=== PATIENT | female | born 1935 | race Caucasian/White ===

== ENCOUNTER 2019-07-04 11:07 | Outpatient (CLI) | payer MEDICARE, OTHER, SELFPAY ==
--- NOTE | 2019-07-04 12:15 | MM_ITS ---
WS: [id number] BILATERAL SCREENING DIGITAL MAMMOGRAM WITH CAD HISTORY: HX OF BREAST CA COMPARISON: 06/20/2018, 06/16/2017 and 01/22/2016 Bilateral CC and MLO views submitted. Computer aided detection analyzed. Breast composition: The breasts are heterogeneously dense, which may obscure small masses. No suspici ous masses, microcalcifications or architectural distortion. Scattered breast asymmetries with benign and vascular calcifications. MM/[id number] IMPRESSION: BI-RADS: 2-Benign FOLLOW UP: 1 Year Follow-up
== END 2019-07-04 11:08 | disposition home or self-care (01) ==
LOC: RADSHAW 11:12 → ONCMED 12:15
PROVIDERS: Family Provider Family Medicine; PCP Family Medicine; Visit Provider Internal Medicine Hematology & Oncology
DX: Z85.3 Personal history of malignant neoplasm of breast (principal)
CPT/HCPCS: 77066

== ENCOUNTER 2019-07-13 12:08 | Outpatient (CLI) | payer MEDICARE, OTHER, SELFPAY ==
[2019-07-13 12:59] LABS: Basophils % 0.2 %; Eosinophils # 0.2 10^3/uL (0.0-0.8); Eosinophils % 2.1 %; Hematocrit 38.3 % (37.0-47.0); Hemoglobin 12.7 g/dL (11.5-15.3); Lymphocytes # 2.5 10^3/uL (0.8-4.8); Lymphocytes % 26.5 %; Mean Corpuscular HGB Conc 33.2 g/dL (30.0-36.0); Mean Corpuscular Hemoglobin 30.2 pg (28.0-34.0); Mean Corpuscular Volume 91.2 fL (81-99); Mean Platelet Volume 12.5 fL (7.4-10.4); Monocytes # 0.8 10^3/uL (0.2-0.9); Monocytes % 8.1 %; Neutrophils # 5.8 10^3/uL (1.8-7.7); Neutrophils % 62.8 %; Nucleated Red Blood Cells % 0 %; Platelet Count 192 10^3/cmm (130-400); Red Cell Distribution Width 12.9 % (12.1-15.1); White Blood Count 9.3 10^3/uL (4.0-10.0)
[2019-07-13 13:16] LABS: Alanine Aminotransferase 13 U/L (0-33); Albumin Level 3.8 g/dL (3.5-5.2); Alkaline Phosphatase 53 IU/L (35-105); Anion Gap 13.9 (5-19); Aspartate Amino Transferase 23 U/L (0-32); Blood Urea Nitrogen 14 mg/dL (8-23); Calcium 9.4 mg/dL (8.5-10.5); Carbon Dioxide 26 mmol/L (22-29); Chloride 99 mmol/L (98-107); Globulin 2.9 g/dL (1.3-4.6); Glucose 115 mg/dL (65-115); Potassium 3.9 mmol/L (3.5-5.1); Sodium 135 mmol/L (136-145); Total Bilirubin 0.2 mg/dL (0.15-1.2); Total Protein 6.7 g/dL (6.6-8.7)
--- NOTE | 2019-07-17 06:18 | ONC FU_ITS ---
Dr. Licona Patient Follow-Up Note Patient: Soledad Varma Unit #: [id number]: 1935 Dicatated By: Diomedes Licona M.D.Date of Visit:Jul 13, 2019 Onc Med Follow-up/Prog Note Chief Complaint: Breast cancer. History of Present Illness: This is an 83 year-old woman with grade 2 infiltrating ductal carcinoma of the right breast, stage IA (T1c, N0, M0), ER/NC positive and HER-2/katie nonamplified. She had presented in January 2016 with an abnormal screening mammogram which showed increased asymmetry in the anterior central right breast, BI-RADS 0. Further evaluation with diagnostic mammogram on 03/25/2016 revealed no definite mass lesion or architectural distortion. Ultrasound at that time, however, showed an oval-shaped hypoechoic mass in the deep 9 to 10:00 position of the right breast at 2 cm from the nipple. It measured 1.4 x 0.8 x 1.1 cm, and it was BI-RADS Category 4A, suspicious. Ultrasound-guided needle biopsy on 04/27/2016 was nondiagnostic. She was referred to Dr. Ludwig. Excisional biopsy on 06/18/2016 showed grade 2/3 infiltrating ductal carcinoma08/05/2016 measuring 1.2 x 1.1 cm. There was tumor present at the posterior inked margin and there is tumor within 1 mm of the anterior inked margin. The breast prognostic profile showed ER positive at 99% and NC positive at 99%. The tumor was negative for overexpression of HER-2/katie, 0+ by IHC, amplification ratio 1.1 by FISH with 1.9 HER-2/katie copies/cell. The Ki-67 was favorable at 4%. She underwent reexcision lumpectomy with axillary sentinel lymph node biopsy on 07/16/2016. Pathology showed no residual carcinoma in the reexcision specimen. There was no involvement in 7 lymph nodes. As such, her disease was stage IA (T1c, N0, M0). I had seen her initially on 08/05/2016. Her primary concern at that time was that she did not want any treatment which would potentially make her sick or weaken her bones. She did not want to have breast radiation. She did agree to take adjuvant hormonal therapy with tamoxifen, but not an aromatase inhibitor. Her other medical illnesses include hypertension, hyperlipidemia, and GERD. She is a nonsmoker. INTERIM HISTORY: On 11/05/2017 she was admitted to the hospital after presenting to the emergency room with abdominal pain and vomiting. Her CT abdomen/pelvis showed mildly dilated fluid-filled loops of small bowel suspicious for early or partial small bowel obstruction. Also noted was an abnormally prominent uterine profile containing heterogeneous low-attenuation material within the endometrial canal. It was noted to be an abnormal finding for a postmenopausal patient. Her GI symptoms improved with conservative management. She was discharged home on 11/14/2017. Her tamoxifen was discontinued. She then underwent an endometrial sampling/biopsy on 11/17/2017. Pathology showed just a scant fragments of superficial endometrial glands and numerous macrophages. There was no malignancy, hyperplasia, or chronic endometritis identified. She had further evaluation with transvaginal ultrasound on 12/06/2017. It showed markedly abnormal endometrium containing cystic areas. There appeared to be progression of the endometrial changes compared to 11/05/2017 ultrasound. On 01/04/2018 she underwent hysteroscopy with findings of a polyp arising from the posterior uterine wall. She underwent polypectomy with MYOSURE. Pathology was benign. I had seen her for a follow-up visit in June 2018. After conferring with Dr. Blount, I did have her restart adjuvant hormonal therapy with tamoxifen 20 mg daily. She is seen for a scheduled visit. She has been feeling good generally. She has had a few hot flashes with the tamoxifen. She otherwise appears to be tolerating it well. She has good energy and she has normal activity. Her appetite is good. She has no fever or night sweats she has mild exertional dyspnea. She does not complain of chest pain. She has no GI/ complaints other than frequent urination. She has occasional back pain, which has been going on for years. She has no other joint or bone pain. She occasionally has numbness in the thumb and index finger of her right hand. She has no other focal neurologic symptoms. Medications: Aspirin 1 Tablet (of 81 mg) Oral daily, Bisoprolol Fumarate 0.5 Tablet (of 5 mg) Oral daily, Calcium 600 + D 1 (600-200 mg - Units) Tablet Oral daily, Cetirizine HCl 1 Tablet (of 10 mg) Oral daily, Cyclobenzaprine HCl 1 (10 mg) Tablet Oral daily PRN, Dicyclomine HCl 1 Capsule (of 10 mg) Oral t.i.d. PRN, Fish Oil 1 (1200 mg) Capsule Oral b.i.d., Flonase 2 spray(s) (of 50 mcg/act) Suspension Nasal daily, Garlic 1 (1000 mg) Capsule Oral daily, Multivitamin Adult 1 Tablet Oral daily, Niacin 1 (100 mg) Tablet Oral daily, Pepcid 1 Tablet (of 20 mg) Oral daily, Probiotic 1 Capsule Oral daily, Tamoxifen Citrate 1 Tablet (of 20 mg) Oral daily Allergies: No Known Allergies. Review of Systems: Constitutional - She has good energy and she has normal activity. Appetite is good and weight is stable. No fever or night sweats. She has a few hot flashes. ECOG score is 0, ENMT - She has some sinus drainage which is chronic. No mouth sores. No sore throat or difficulty swallowing, Hematologic/Lymphatic - No abnormal bruising or bleeding, Respiratory - She has mild exertional dyspnea. No cough. No pleuritic pain or hemoptysis, Cardiovascular - No angina pain. No palpitations, Gastrointestinal - No nausea or vomiting. No heartburn or acid reflux. No diarrhea or constipation. No blood in the stool or black stools, Genitourinary (F) - No dysuria or hematuria. She has urinary frequency. No urgency or incontinence, Musculoskeletal - She occasionally has back pain. She has no other joint or bone pain, Integumentary - No skin complications, Neurologic - No headache or dizziness. She has occasional numbness in the thumb and index finger of her right hand. She has no other focal neurologic symptoms, Psychiatric - No anxiety or depression. No insomnia. Vital Signs: Performed on Jul 13, 2019 13:26 Height - 61.00 in Weight - 137.4 lbs (HIGH) BSA - 1.61 sq.m BMI - 25.96 Temperature - 97.2 F (LOW) Pulse - 103 /min (HIGH) Respiration - 24 /min BP - 161/89 mm(hg) (HIGH) O2 Sat - 98 % Pain - 0 Physical Examination: Constitutional - She looks good generally, Eyes - Sclerae nonicteric. Conjunctivae clear, ENMT - No lesions noted in the oral cavity, Hematologic/Lymphatic - No cervical, clavicular, or axillary adenopathy, Respiratory - Lungs are clear with good air movement bilaterally, Cardiovascular - Heart rhythm is regular. There is a III/ systolic murmur. There is no gallop or rub noted, Abdomen - Soft. Liver and spleen are not enlarged. There is no abdominal mass or ascites noted and there is no inguinal adenopathy, Extremities - No edema, though the left calf appears slightly larger than the right, Neurologic - No focal neurologic deficits noted. Lab/Imaging: Test performed on Jul 13, 2019 12:20 Sodium 135 mmol/L Potassium 3.9 mmol/L Chloride 99 mmol/L CO2 26 mmol/L Anion Gap 13.9 BUN 14 mg/dL Creatinine 0.6 mg/dL Cr Clearance (Est) 68.67 mL/min Glucose 115 mg/dL Calcium 9.4 mg/dL Protein, Total 6.7 g/dL Albumin 3.8 g/dL Globulin 2.9 g/dL Bilirubin, Total 0.2 mg/dL ALT (SGPT) 13 U/L AST (SGOT) 23 U/L Alkaline Phosphatase 53 IU/L WBC 9.3 10 3/uL RBC 4.20 10 6/uL HGB 12.7 g/dL HCT 38.3 % MCV 91.2 fL MCH 30.2 pg MCHC 33.2 g/dL RDW 12.9 % Platelet Count 192 10 3/cmm MPV 12.5 fL Neutrophils 5.8 10 3/uL Lymphocytes 2.5 10 3/uL Monocytes 0.8 10 3/uL Eosinophils 0.2 10 3/uL Basophils 0.0 10 3/uL Neutrophil % 62.8 % Lymphocyte % 26.5 % Monocyte % 8.1 % Eosinophil % 2.1 % Basophils % 0.2 % Impression: 1. Patient with grade 2 infiltrating ductal carcinoma of the right breast, stage IA (T1c, N0, M0), ER/NC positive and HER-2/katie nonamplified. 2. She underwent excisional biopsy of the right breast on 06/18/2016 followed by reexcision lumpectomy and axillary sentinel lymph node biopsy on 07/16/2016. Her other medical illnesses include: 3. Hypertension. 4. Hyperlipidemia. 5. GERD. She did not want to have breast radiation. She was willing to take adjuvant hormonal therapy with tamoxifen, but not an aromatase inhibitor. She began treatment with tamoxifen 20 mg daily in August 2016. On 11/05/2017 she was admitted to the hospital with partial small bowel obstruction. It resolved with conservative management. However, her ultrasound and CT scans showed findings in the endometrium which were suspicious for endometrial cancer. Her tamoxifen was discontinued. The initial endometrial biopsy was nondiagnostic. A follow-up transvaginal ultrasound still showed significantly abnormal endometrium. She ultimately underwent hysteroscopy on 01/04/2018 which showed evidence of endometrial polyp in the posterior uterine wall. She underwent polypectomy and the pathology was benign. As of her follow-up visit in June 2018 she had restarted adjuvant hormonal therapy with tamoxifen 20 mg daily. She has tolerated it well and thus far there has been no evidence of recurrence of the breast cancer. Plan: She will continue adjuvant hormonal therapy with tamoxifen 20 mg daily. I will see her again in 6 months. Signed By: Diomedes Licona M.D. <<Signature on File>>
== END 2019-07-13 12:09 | disposition home or self-care (01) ==
LOC: ONCMED 12:08
PROVIDERS: Family Provider Family Medicine; PCP Family Medicine; Visit Provider Internal Medicine Medical Oncology
DX: C50.511 Malignant neoplasm of lower-outer quadrant of right female breast (principal); I10 Essential (primary) hypertension; E78.5 Hyperlipidemia, unspecified; K21.9 Gastro-esophageal reflux disease without esophagitis; Z17.0 Estrogen receptor positive status [ER+]; Z79.810 Long term (current) use of selective estrogen receptor modulators (SERMs); Z79.82 Long term (current) use of aspirin
CPT/HCPCS: 36415; 80053; 85025; 99214

== ENCOUNTER 2019-07-14 09:18 | Outpatient (REF) | payer MEDICARE, OTHER, SELFPAY ==
[2019-07-14 13:24] LABS: Chol HDL Ratio 2.65 mg/dL (0.0-4.40); Cholesterol 196 mg/dL (0-200); Glucose 97 mg/dL (65-115); HDL Cholesterol 74 mg/dL (60-100); LDL Cholesterol Calculated 93 mg/dL (50-129); LDL HDL Ratio 1.26 RATIO (0.00-3.22); Triglycerides 144 mg/dL (0-150)
[2019-07-14 14:19] LABS: Estmated Average Glucose 134; Hemoglobin A1C 6.3 % (4.0-6.0)
== END 2019-07-14 09:19 | disposition home or self-care (01) ==
LOC: LAB 09:18
PROVIDERS: Family Provider Family Medicine; PCP Family Medicine; Visit Provider Dermatology
DX: Z01.89 Encounter for other specified special examinations (principal)
CPT/HCPCS: 80061; 82947; 83036

== ENCOUNTER 2020-01-11 11:53 | Outpatient (CLI) | payer MEDICARE, OTHER, SELFPAY ==
[2020-01-11 12:27] LABS: Basophils % 0.3 %; Eosinophils # 0.3 10^3/uL (0.0-0.8); Eosinophils % 2.9 %; Hematocrit 37.5 % (37.0-47.0); Hemoglobin 12.4 g/dL (11.5-15.3); Lymphocytes # 2.4 10^3/uL (0.8-4.8); Lymphocytes % 25.8 %; Mean Corpuscular HGB Conc 33.1 g/dL (30.0-36.0); Mean Corpuscular Hemoglobin 30.8 pg (28.0-34.0); Mean Corpuscular Volume 93.1 fL (81-99); Mean Platelet Volume 12.3 fL (7.4-10.4); Monocytes # 0.7 10^3/uL (0.2-0.9); Monocytes % 7.8 %; Neutrophils # 5.93 10^3/uL (1.8-7.7); Neutrophils % 62.9 %; Nucleated Red Blood Cells % 0 %; Platelet Count 166 10^3/cmm (130-400); Red Blood Count 4.03 10^6/uL (4.1-5.3); Red Cell Distribution Width 13.1 % (12.1-15.1); White Blood Count 9.4 10^3/uL (4.0-10.0)
[2020-01-11 13:18] LABS: Alanine Aminotransferase 14 U/L (0-33); Albumin Level 4.1 g/dL (3.5-5.2); Alkaline Phosphatase 48 IU/L (35-105); Anion Gap 13.9 (5-19); Aspartate Amino Transferase 22 U/L (0-32); Blood Urea Nitrogen 12 mg/dL (8-23); Carbon Dioxide 25 mmol/L (22-29); Chloride 100 mmol/L (98-107); Glucose 118 mg/dL (65-115); Osmolality Calculated 277 mOsm/kg (285-295); Potassium 3.9 mmol/L (3.5-5.1); Sodium 135 mmol/L (136-145); Total Bilirubin 0.2 mg/dL (0.15-1.2); Total Protein 7.1 g/dL (6.6-8.7)
--- NOTE | 2020-01-11 18:37 | ONC FU_ITS ---
Dr. Licona Patient Follow-Up Note Patient: Soledad Varma Unit #: [id number]: 1935 Dicatated By: Diomedes Licona M.D.Date of Visit:Jan 11, 2020 Onc Med Follow-up/Prog Note Chief Complaint: Breast cancer. History of Present Illness: This is an 84 year-old woman with grade 2 infiltrating ductal carcinoma of the right breast, stage IA (T1c, N0, M0), ER/CA positive and HER-2/katie nonamplified. She had presented in January 2016 with an abnormal screening mammogram which showed increased asymmetry in the anterior central right breast, BI-RADS 0. Further evaluation with diagnostic mammogram on 03/25/2016 revealed no definite mass lesion or architectural distortion. Ultrasound at that time, however, showed an oval-shaped hypoechoic mass in the deep 9 to 10:00 position of the right breast at 2 cm from the nipple. It measured 1.4 x 0.8 x 1.1 cm, and it was BI-RADS Category 4A, suspicious. Ultrasound-guided needle biopsy on 04/27/2016 was nondiagnostic. She was referred to Dr. Ludwig. Excisional biopsy on 06/18/2016 showed grade 2/3 infiltrating ductal carcinoma08/05/2016 measuring 1.2 x 1.1 cm. There was tumor present at the posterior inked margin and there is tumor within 1 mm of the anterior inked margin. The breast prognostic profile showed ER positive at 99% and CA positive at 99%. The tumor was negative for overexpression of HER-2/katie, 0+ by IHC, amplification ratio 1.1 by FISH with 1.9 HER-2/katie copies/cell. The Ki-67 was favorable at 4%. She underwent reexcision lumpectomy with axillary sentinel lymph node biopsy on 07/16/2016. Pathology showed no residual carcinoma in the reexcision specimen. There was no involvement in 7 lymph nodes. As such, her disease was stage IA (T1c, N0, M0). I had seen her initially on 08/05/2016. Her primary concern at that time was that she did not want any treatment which would potentially make her sick or weaken her bones. She did not want to have breast radiation. She did agree to take adjuvant hormonal therapy with tamoxifen, but not an aromatase inhibitor. Her other medical illnesses include hypertension, hyperlipidemia, and GERD. She is a nonsmoker. INTERIM HISTORY: On 11/05/2017 she was admitted to the hospital after presenting to the emergency room with abdominal pain and vomiting. Her CT abdomen/pelvis showed mildly dilated fluid-filled loops of small bowel suspicious for early or partial small bowel obstruction. Also noted was an abnormally prominent uterine profile containing heterogeneous low-attenuation material within the endometrial canal. It was noted to be an abnormal finding for a postmenopausal patient. Her GI symptoms improved with conservative management. She was discharged home on 11/14/2017. Her tamoxifen was discontinued. She then underwent an endometrial sampling/biopsy on 11/17/2017. Pathology showed just a scant fragments of superficial endometrial glands and numerous macrophages. There was no malignancy, hyperplasia, or chronic endometritis identified. She had further evaluation with transvaginal ultrasound on 12/06/2017. It showed markedly abnormal endometrium containing cystic areas. There appeared to be progression of the endometrial changes compared to 11/05/2017 ultrasound. On 01/04/2018 she underwent hysteroscopy with findings of a polyp arising from the posterior uterine wall. She underwent polypectomy with MYOSURE. Pathology was benign. I had seen her for a follow-up visit in June 2018. After conferring with Dr. Blount, I did have her restart adjuvant hormonal therapy with tamoxifen 20 mg daily. She is seen for a scheduled visit. She has been feeling good generally. She has pretty good energy, and she has normal activity. ECOG score is 0. Her appetite is good. She has not had fever or night sweats. She does have some hot flashes. She continues to have some yellowish vaginal discharge. She has no other apparent side effects with the tamoxifen. She did not keep her scheduled follow-up visit with Dr. Blount, apparently because there were concerns that the visit would not be covered by Medicare. She does not complain of shortness of breath or chest pain, and she has had no recurrence of her cough. She has no GI or complaints. She has occasional joint pain, mainly in her right knee. She has occasional numbness in her right thumb and index finger. She has no other focal neurologic symptoms. Medications: Aspirin 1 Tablet (of 81 mg) Oral daily, Bisoprolol Fumarate 0.5 Tablet (of 5 mg) Oral daily, Calcium 600 + D 1 (600-200 mg - Units) Tablet Oral daily, Cetirizine HCl 1 Tablet (of 10 mg) Oral daily, Cyclobenzaprine HCl 1 (10 mg) Tablet Oral daily PRN, Fish Oil 1 (1200 mg) Capsule Oral daily, Flonase 2 spray(s) (of 50 mcg/act) Suspension Nasal daily, Garlic 1 (1000 mg) Capsule Oral daily, Multivitamin Adult 1 Tablet Oral daily, Niacin 1 (100 mg) Tablet Oral daily, Pepcid 1 Tablet (of 20 mg) Oral daily PRN, Probiotic 1 Capsule Oral daily, Tamoxifen Citrate 1 Tablet (of 20 mg) Oral daily Allergies: No Known Allergies. Review of Systems: Constitutional - She has been feeling good. Her energy is good and she has normal activity without restrictions. Her appetite is good and weight is stable. No fevers or sweating. She has occasional hot flashes. ECOG score is 0, ENMT - She as seasonal allergies. No mouth sores. No sore throat or difficulty swallowing, Hematologic/Lymphatic - No abnormal bruising or bleeding, Respiratory - She has occasional shortness of breath with activity. No cough. No pleuritic pain or hemoptysis, Cardiovascular - No angina pain. No palpitations, Gastrointestinal - No nausea or vomiting. She has occasional heartburn that is adequately managed with Pepcid. No diarrhea or constipation. No blood in the stool or black stools, Genitourinary (F) - No dysuria or hematuria. No urinary frequency. No urgency or incontinence, Musculoskeletal - She has occasional joint pain, mainly in her right knee, Integumentary - No skin complications, Neurologic - No headache or dizziness. She has occasional numbness in the thumb and index finger of her right hand. No other focal neurologic symptoms, Psychiatric - No anxiety or depression. No insomnia. Vital Signs: Performed on Jan 11, 2020 13:30 Height - 61.00 in Weight - 136.6 lbs (LOW) BSA - 1.61 sq.m BMI - 25.81 Temperature - 97.9 F (LOW) Pulse - 86 /min Respiration - 18 /min BP - 190/63 mm(hg) (HIGH) O2 Sat - 98 % Pain - 0 Physical Examination: Constitutional - She looks good generally, Eyes - Sclerae nonicteric. Conjunctivae clear, ENMT - No lesions noted in the oral cavity, Hematologic/Lymphatic - No cervical or clavicular adenopathy, Respiratory - Lungs are clear with good air movement bilaterally, Cardiovascular - Heart rhythm is regular. There is a III/ systolic murmur. There is no gallop or rub noted, Breasts - There is mild induration in the right breast. There is no mass palpable. The left breast shows no mass. There is no axillary adenopathy, Abdomen - Soft. Liver and spleen are not enlarged. There is no abdominal mass or ascites noted and there is no inguinal adenopathy, Extremities - No edema, Neurologic - No focal neurologic deficits noted. Lab/Imaging: Test performed on Jan 11, 2020 12:06 Sodium 135 mmol/L Potassium 3.9 mmol/L Chloride 100 mmol/L CO2 25 mmol/L Anion Gap 13.9 BUN 12 mg/dL Creatinine 0.7 mg/dL Cr Clearance (Est) 57.47 mL/min Glucose 118 mg/dL Calcium 9.0 mg/dL Protein, Total 7.1 g/dL Albumin 4.1 g/dL Globulin 3.0 g/dL Bilirubin, Total 0.2 mg/dL ALT (SGPT) 14 U/L AST (SGOT) 22 U/L Alkaline Phosphatase 48 IU/L WBC 9.4 10 3/uL RBC 4.03 10 6/uL HGB 12.4 g/dL HCT 37.5 % MCV 93.1 fL MCH 30.8 pg MCHC 33.1 g/dL RDW 13.1 % Platelet Count 166 10 3/cmm MPV 12.3 fL Neutrophils 5.93 10 3/uL Lymphocytes 2.4 10 3/uL Monocytes 0.7 10 3/uL Eosinophils 0.3 10 3/uL Basophils 0.0 10 3/uL Neutrophil % 62.9 % Lymphocyte % 25.8 % Monocyte % 7.8 % Eosinophil % 2.9 % Basophils % 0.3 % NRBC % 0 % Impression: 1. Patient with grade 2 infiltrating ductal carcinoma of the right breast, stage IA (T1c, N0, M0), ER/CA positive and HER-2/katie nonamplified. 2. She underwent excisional biopsy of the right breast on 06/18/2016 followed by reexcision lumpectomy and axillary sentinel lymph node biopsy on 07/16/2016. Her other medical illnesses include: 3. Hypertension. 4. Hyperlipidemia. 5. GERD. She did not want to have breast radiation. She was willing to take adjuvant hormonal therapy with tamoxifen, but not an aromatase inhibitor. She began treatment with tamoxifen 20 mg daily in August 2016. On 11/05/2017 she was admitted to the hospital with partial small bowel obstruction. It resolved with conservative management. However, her ultrasound and CT scans showed findings in the endometrium which were suspicious for endometrial cancer. Her tamoxifen was discontinued. The initial endometrial biopsy was nondiagnostic. A follow-up transvaginal ultrasound still showed significantly abnormal endometrium. She ultimately underwent hysteroscopy on 01/04/2018 which showed evidence of endometrial polyp in the posterior uterine wall. She underwent polypectomy and the pathology was benign. As of her follow-up visit in June 2018 she had restarted adjuvant hormonal therapy with tamoxifen 20 mg daily. She has had some yellowish vaginal discharge with the tamoxifen, and she also continues have some hot flashes. Thus far the side effects have been very tolerable. Overall, she appears to be doing well clinically with no evidence of recurrence of the breast cancer. Plan: She will continue adjuvant hormonal therapy with tamoxifen 20 mg daily. I will see her again in 6 months. In the meantime, I will see if I can get her visit rescheduled with Dr. Blount, as I feel that she should continue regular [facility] follow-up. Signed By: Diomedes Licona M.D. <<Signature on File>>
== END 2020-01-11 11:54 | disposition home or self-care (01) ==
LOC: ONCMED 11:56
PROVIDERS: PCP Family Medicine; Visit Provider Internal Medicine Medical Oncology
DX: C50.511 Malignant neoplasm of lower-outer quadrant of right female breast (principal); Z17.0 Estrogen receptor positive status [ER+]; I10 Essential (primary) hypertension; E78.5 Hyperlipidemia, unspecified; K21.9 Gastro-esophageal reflux disease without esophagitis; Z79.810 Long term (current) use of selective estrogen receptor modulators (SERMs)
CPT/HCPCS: 36415; 80053; 85025; 99214

== ENCOUNTER → 2020-03-13 15:35 | Outpatient (BNVA) | payer MEDICARE, OTHER, SELFPAY | PROVIDERS: PCP Family Medicine; Visit Provider Obstetrics & Gynecology | DX: N89.8 Other specified noninflammatory disorders of vagina (principal) | CPT/HCPCS: 87210 ==

== ENCOUNTER 2020-07-11 08:39 | Outpatient (CLI) | payer MEDICARE, OTHER, SELFPAY ==
--- NOTE | 2020-07-11 09:05 | MM_ITS ---
WS: [id number] BILATERAL DIGITAL DIAGNOSTIC MAMMOGRAM MAMMOGRAPHY WITH CAD CLINICAL INFORMATION: HX OF BREAST CA HISTORY: COMPARISON: July 04, 2019 TECHNIQUE: Bilateral CC, MLO, and ML views. FINDINGS: The breasts are composed of heterogeneous fibroglandular density, which can limit the detection of sm all underlying mass lesions. Vascular calcification. Punctate calcifications. Stable parenchymal fibr osis right breast. No suspicious focal mass, asymmetry, calcifications, or architectural distortion. No evidence of dasia gnancy. MM/[id number] IMPRESSION: BI-RADS: 2-Benign FOLLOW UP: 1 Year Follow-up Recommend return to annual diagnostic mammography.
[2020-07-11 09:36] LABS: Alanine Aminotransferase 14 U/L (0-33); Alkaline Phosphatase 52 IU/L (35-105); Anion Gap 11.8 (5-19); Aspartate Amino Transferase 22 U/L (0-32); Blood Urea Nitrogen 15 mg/dL (8-23); Calcium 9.1 mg/dL (8.5-10.5); Carbon Dioxide 28 mmol/L (22-29); Chloride 102 mmol/L (98-107); Globulin 3.1 g/dL (1.3-4.6); Glucose 99 mg/dL (65-115); Osmolality Calculated 287 mOsm/kg (285-295); Potassium 3.8 mmol/L (3.5-5.1); Sodium 138 mmol/L (136-145); Total Bilirubin 0.3 mg/dL (0.15-1.2); Total Protein 7.1 g/dL (6.6-8.7)
[2020-07-11 10:45] LABS: Basophils % 0.3 %; Eosinophils # 0.2 10^3/uL (0.0-0.8); Eosinophils % 2.2 %; Hematocrit 40.4 % (37.0-47.0); Hemoglobin 13.1 g/dL (11.5-15.3); Lymphocytes # 2.7 10^3/uL (0.8-4.8); Lymphocytes % 27.9 %; Mean Corpuscular HGB Conc 32.4 g/dL (30.0-36.0); Mean Corpuscular Hemoglobin 29.8 pg (28.0-34.0); Mean Platelet Volume 11.9 fL (7.4-10.4); Monocytes # 0.7 10^3/uL (0.2-0.9); Neutrophils # 6.02 10^3/uL (1.8-7.7); Neutrophils % 62.3 %; Nucleated Red Blood Cells % 0 %; Platelet Count 183 10^3/cmm (130-400); Red Blood Count 4.39 10^6/uL (4.1-5.3); Red Cell Distribution Width 12.5 % (12.1-15.1); White Blood Count 9.7 10^3/uL (4.0-10.0)
--- NOTE | 2020-07-11 20:02 | ONC FU_ITS ---
Dr. Licona Patient Follow-Up Note Patient: Soledad Varma Unit #: [id number]: 1935 Dicatated By: Diomedes Licona M.D.Date of Visit:Jul 11, 2020 Onc Med Follow-up/Prog Note Chief Complaint: Breast cancer. History of Present Illness: This is an 84 year-old woman with grade 2 infiltrating ductal carcinoma of the right breast, stage IA (T1c, N0, M0), ER/MO positive and HER-2/katie nonamplified. She had presented in January 2016 with an abnormal screening mammogram which showed increased asymmetry in the anterior central right breast, BI-RADS 0. Further evaluation with diagnostic mammogram on 03/25/2016 revealed no definite mass lesion or architectural distortion. Ultrasound at that time, however, showed an oval-shaped hypoechoic mass in the deep 9 to 10:00 position of the right breast at 2 cm from the nipple. It measured 1.4 x 0.8 x 1.1 cm, and it was BI-RADS Category 4A, suspicious. Ultrasound-guided needle biopsy on 04/27/2016 was nondiagnostic. She was referred to Dr. Ludwig. Excisional biopsy on 06/18/2016 showed grade 2/3 infiltrating ductal carcinoma08/05/2016 measuring 1.2 x 1.1 cm. There was tumor present at the posterior inked margin and there is tumor within 1 mm of the anterior inked margin. The breast prognostic profile showed ER positive at 99% and MO positive at 99%. The tumor was negative for overexpression of HER-2/katie, 0+ by IHC, amplification ratio 1.1 by FISH with 1.9 HER-2/katie copies/cell. The Ki-67 was favorable at 4%. She underwent reexcision lumpectomy with axillary sentinel lymph node biopsy on 07/16/2016. Pathology showed no residual carcinoma in the reexcision specimen. There was no involvement in 7 lymph nodes. As such, her disease was stage IA (T1c, N0, M0). I had seen her initially on 08/05/2016. Her primary concern at that time was that she did not want any treatment which would potentially make her sick or weaken her bones. She did not want to have breast radiation. She did agree to take adjuvant hormonal therapy with tamoxifen, but not an aromatase inhibitor. Her other medical illnesses include hypertension, hyperlipidemia, and GERD. She is a nonsmoker. INTERIM HISTORY: On 11/05/2017 she was admitted to the hospital after presenting to the emergency room with abdominal pain and vomiting. Her CT abdomen/pelvis showed mildly dilated fluid-filled loops of small bowel suspicious for early or partial small bowel obstruction. Also noted was an abnormally prominent uterine profile containing heterogeneous low-attenuation material within the endometrial canal. It was noted to be an abnormal finding for a postmenopausal patient. Her GI symptoms improved with conservative management. She was discharged home on 11/14/2017. Her tamoxifen was discontinued. She then underwent an endometrial sampling/biopsy on 11/17/2017. Pathology showed just a scant fragments of superficial endometrial glands and numerous macrophages. There was no malignancy, hyperplasia, or chronic endometritis identified. She had further evaluation with transvaginal ultrasound on 12/06/2017. It showed markedly abnormal endometrium containing cystic areas. There appeared to be progression of the endometrial changes compared to 11/05/2017 ultrasound. On 01/04/2018 she underwent hysteroscopy with findings of a polyp arising from the posterior uterine wall. She underwent polypectomy with MYOSURE. Pathology was benign. I had seen her for a follow-up visit in June 2018. After conferring with Dr. Blount, I did have her restart adjuvant hormonal therapy with tamoxifen 20 mg daily. She is seen for a scheduled visit. She has been feeling good generally. Her energy is somewhat variable, but mostly good. She has normal activity. ECOG score is 0. Her appetite is good. She has not had fever. She has just occasional hot flashes. She has no shortness of breath, cough, or chest pain. She has no GI complaints. Bladder function has been okay. She still has some yellow vaginal discharge. She has continued regular follow-up with Dr. Blount. She has pain at times in her right knee and or right hip, but that has been going on for years. She has no other joint or bone pain. She does not complain of headache or dizziness. She occasionally has numbness in her fingers. She has no other focal neurologic symptoms. Medications: Aspirin 1 Tablet (of 81 mg) Oral daily, Bisoprolol Fumarate 0.5 Tablet (of 5 mg) Oral daily, Calcium 600 + D 1 (600-200 mg - Units) Tablet Oral daily, Cetirizine HCl 1 Tablet (of 10 mg) Oral daily, Cyclobenzaprine HCl 1 (10 mg) Tablet Oral daily PRN, Fish Oil 1 (1200 mg) Capsule Oral daily, Flonase 2 spray(s) (of 50 mcg/act) Suspension Nasal daily, Garlic 1 (1000 mg) Capsule Oral daily, Multivitamin Adult 1 Tablet Oral daily, Niacin 1 (100 mg) Tablet Oral daily, Pepcid 1 Tablet (of 20 mg) Oral daily PRN, Probiotic 1 Capsule Oral daily, Tamoxifen Citrate 1 Tablet (of 20 mg) Oral daily, Vitamin D Capsule Oral Take as Directed Allergies: No Known Allergies. Vital Signs: Performed on Jul 11, 2020 10:38 Height - 61.00 in Weight - 137 lbs (HIGH) BSA - 1.61 sq.m BMI - 25.89 Temperature - 98.3 F (LOW) Pulse - 81 /min Respiration - 17 /min BP - 157/83 mm(hg) (HIGH) O2 Sat - 94 % (LOW) Pain - 0 Physical Examination: Constitutional - She looks good generally, Eyes - Sclerae nonicteric. Conjunctivae clear, ENMT - No lesions noted in the oral cavity, Hematologic/Lymphatic - No cervical or clavicular adenopathy, Respiratory - Lungs are clear with good air movement bilaterally, Cardiovascular - Heart rhythm is regular. There is a III/ systolic murmur. There is no gallop or rub noted, Breasts - There are no breast masses noted. There is no axillary adenopathy, Abdomen - Soft. Liver and spleen are not enlarged. There is no abdominal mass or ascites noted and there is no inguinal adenopathy, Extremities - No edema, Neurologic - No focal neurologic deficits noted. Lab/Imaging: CBC shows hemoglobin 13.1 g, white blood cell count 9700, and platelet count 183,000. Comprehensive metabolic profile is unremarkable. Problem List: 1. Grade 2 infiltrating ductal carcinoma of the right breast, stage IA (T1c, N0, M0), ER/MO positive and HER-2/katie nonamplified. She underwent excisional biopsy of the right breast on 06/18/2016 followed by reexcision lumpectomy and axillary sentinel lymph node biopsy on 07/16/2016. She did not want to have breast radiation. She was willing to take adjuvant hormonal therapy with tamoxifen, but not an aromatase inhibitor. She began treatment with tamoxifen 20 mg daily in August 2016. 2. Hypertension. 3. Hyperlipidemia. 4. GERD. Problems Addressed with this Encounter and Plan: Grade 2 infiltrating ductal carcinoma of the right breast, stage IA (T1c, N0, M0), ER/MO positive and HER-2/katie nonamplified. She underwent excisional biopsy of the right breast on 06/18/2016 followed by reexcision lumpectomy and axillary sentinel lymph node biopsy on 07/16/2016. She did not want to have breast radiation. She was willing to take adjuvant hormonal therapy with tamoxifen, but not an aromatase inhibitor. She began treatment with tamoxifen 20 mg daily in August 2016. In November [address] scans showed findings in the endometrium which were suspicious for endometrial cancer. Her tamoxifen was discontinued. The initial endometrial biopsy was nondiagnostic. A follow-up transvaginal ultrasound still showed significantly abnormal endometrium. She ultimately underwent hysteroscopy on 01/04/2018 which showed evidence of endometrial polyp in the posterior uterine wall. She underwent polypectomy and the pathology was benign. She had restarted tamoxifen in June 2018. She has since then continued to have some mild vaginal discharge. She otherwise just has mild hot flashes with it. 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 Overall, she has been doing well clinically with no evidence of recurrence of the breast cancer. As such, she will continue her adjuvant hormonal therapy with tamoxifen 20 mg daily. She will be scheduled for a follow-up visit in 6 months. Signed By: Diomedes Licona M.D. <<Signature on File>>
== END 2020-07-11 08:40 | disposition home or self-care (01) ==
PROVIDERS: PCP Family Medicine; Visit Provider Internal Medicine Medical Oncology
DX: C50.811 Malignant neoplasm of overlapping sites of right female breast (principal); Z17.0 Estrogen receptor positive status [ER+]; I10 Essential (primary) hypertension; E78.5 Hyperlipidemia, unspecified; K21.9 Gastro-esophageal reflux disease without esophagitis; Z79.811 Long term (current) use of aromatase inhibitors
CPT/HCPCS: 36415; 77066; 80053; 85025; 99214

== ENCOUNTER 2021-01-14 13:55 | Outpatient (CLI) | payer MEDICARE, OTHER, SELFPAY ==
--- NOTE | 2021-01-14 18:44 | ONC FU_ITS ---
Dr. Licona Patient Follow-Up Note Patient: Soledad Varma Unit #: [id number]: 1935 Dicatated By: Diomedes Licona M.D.Date of Visit:Jan 14, 2021 Onc Med Follow-up/Prog Note Chief Complaint: Breast cancer. History of Present Illness: This is an 85 year-old woman with grade 2 infiltrating ductal carcinoma of the right breast, stage IA (T1c, N0, M0), ER/[place] positive and HER-2/katie nonamplified. She had presented in January 2016 with an abnormal screening mammogram which showed increased asymmetry in the anterior central right breast, BI-RADS 0. Further evaluation with diagnostic mammogram on 03/25/2016 revealed no definite mass lesion or architectural distortion. Ultrasound at that time, however, showed an oval-shaped hypoechoic mass in the deep 9 to 10:00 position of the right breast at 2 cm from the nipple. It measured 1.4 x 0.8 x 1.1 cm, and it was BI-RADS Category 4A, suspicious. Ultrasound-guided needle biopsy on 04/27/2016 was nondiagnostic. She was referred to Dr. Ludwig. Excisional biopsy on 06/18/2016 showed grade 2/3 infiltrating ductal carcinoma08/05/2016 measuring 1.2 x 1.1 cm. There was tumor present at the posterior inked margin and there is tumor within 1 mm of the anterior inked margin. The breast prognostic profile showed ER positive at 99% and [place] positive at 99%. The tumor was negative for overexpression of HER-2/katie, 0+ by IHC, amplification ratio 1.1 by FISH with 1.9 HER-2/katie copies/cell. The Ki-67 was favorable at 4%. She underwent reexcision lumpectomy with axillary sentinel lymph node biopsy on 07/16/2016. Pathology showed no residual carcinoma in the reexcision specimen. There was no involvement in 7 lymph nodes. As such, her disease was stage IA (T1c, N0, M0). I had seen her initially on 08/05/2016. Her primary concern at that time was that she did not want any treatment which would potentially make her sick or weaken her bones. She did not want to have breast radiation. She did agree to take adjuvant hormonal therapy with tamoxifen, but not an aromatase inhibitor. Her other medical illnesses include hypertension, hyperlipidemia, and GERD. She is a nonsmoker. INTERIM HISTORY: On 11/05/2017 she was admitted to the hospital after presenting to the emergency room with abdominal pain and vomiting. Her CT abdomen/pelvis showed mildly dilated fluid-filled loops of small bowel suspicious for early or partial small bowel obstruction. Also noted was an abnormally prominent uterine profile containing heterogeneous low-attenuation material within the endometrial canal. It was noted to be an abnormal finding for a postmenopausal patient. Her GI symptoms improved with conservative management. She was discharged home on 11/14/2017. Her tamoxifen was discontinued. She then underwent an endometrial sampling/biopsy on 11/17/2017. Pathology showed just a scant fragments of superficial endometrial glands and numerous macrophages. There was no malignancy, hyperplasia, or chronic endometritis identified. She had further evaluation with transvaginal ultrasound on 12/06/2017. It showed markedly abnormal endometrium containing cystic areas. There appeared to be progression of the endometrial changes compared to 11/05/2017 ultrasound. On 01/04/2018 she underwent hysteroscopy with findings of a polyp arising from the posterior uterine wall. She underwent hysteroscopic polypectomy with Myosre. Pathology was benign. I had seen her for a follow-up visit in June 2018. After conferring with Dr. Blount, I did have her restart adjuvant hormonal therapy with tamoxifen 20 mg daily. She is seen for a scheduled visit. She has been feeling good generally. She has pretty good energy and her activity is normal. ECOG score is 0. She has good appetite. She has no fever, night sweats, or hot flashes. She has mild exertional dyspnea. She does not have resting dyspnea, cough, or chest pain. She has no GI or complaints. She has her right knee sometimes gives way, but she has no joint or bone pain. She does not complain of headache or dizziness. She occasionally has numbness in her right hand. She has no other focal neurologic symptoms. Medications: Aspirin 1 Tablet (of 81 mg) Oral daily, Bisoprolol Fumarate 0.5 Tablet (of 5 mg) Oral daily, Calcium 600 + D 1 (600-200 mg - Units) Tablet Oral daily, Cetirizine HCl 1 Tablet (of 10 mg) Oral daily, Cyclobenzaprine HCl 1 (10 mg) Tablet Oral daily PRN, Fish Oil 1 (1200 mg) Capsule Oral daily, Flonase 2 spray(s) (of 50 mcg/act) Suspension Nasal daily, Garlic 1 (1000 mg) Capsule Oral daily, Multivitamin Adult 1 Tablet Oral daily, Niacin 1 (100 mg) Tablet Oral daily, Pepcid 1 Tablet (of 20 mg) Oral daily PRN, Probiotic 1 Capsule Oral daily, Tamoxifen Citrate 1 Tablet (of 20 mg) Oral daily, Vitamin D Capsule Oral Take as Directed Allergies: No Known Allergies. Vital Signs: Performed on Jan 14, 2021 16:10 Height - 61.00 in Weight - 132 lbs (LOW) BSA - 1.58 sq.m BMI - 24.94 Temperature - 97.4 F (LOW) Pulse - 83 /min Respiration - 18 /min BP - 155/77 mm(hg) (HIGH) O2 Sat - 92 % (LOW) Pain - 0 Fatigue - 0 Physical Examination: Constitutional - She looks good generally, Eyes - Sclerae nonicteric. Conjunctivae clear, ENMT - No lesions noted in the oral cavity, Hematologic/Lymphatic - No cervical or clavicular adenopathy, Respiratory - Lungs are clear with good air movement bilaterally, Cardiovascular - Heart rhythm is regular with some premature beats. There is a III/ systolic murmur. There is no gallop or rub noted, Abdomen - Soft. Liver and spleen are not enlarged. There is no abdominal mass or ascites noted and there is no inguinal adenopathy, Extremities - No edema, Neurologic - No focal neurologic deficits noted. Problem List: 1. Grade 2 infiltrating ductal carcinoma of the right breast, stage IA (T1c, N0, M0), ER/[place] positive and HER-2/katie nonamplified. She underwent excisional biopsy of the right breast on 06/18/2016 followed by reexcision lumpectomy and axillary sentinel lymph node biopsy on 07/16/2016. She did not want to have breast radiation. She was willing to take adjuvant hormonal therapy with tamoxifen, but not an aromatase inhibitor. She began treatment with tamoxifen 20 mg daily in August 2016. 2. Hypertension. 3. Hyperlipidemia. 4. GERD. Problems Addressed with this Encounter and Plan: Patient with grade 2 infiltrating ductal carcinoma of the right breast, stage IA (T1c, N0, M0), ER/[place] positive and HER-2/katie nonamplified. She underwent excisional biopsy of the right breast on 06/18/2016 followed by reexcision lumpectomy and axillary sentinel lymph node biopsy on 07/16/2016. She did not want to have breast radiation. She was willing to take adjuvant hormonal therapy with tamoxifen, but not an aromatase inhibitor. She began treatment with tamoxifen 20 mg daily in August 2016. In November [address] scans showed findings in the endometrium which were suspicious for endometrial cancer. Her tamoxifen was discontinued. The initial endometrial biopsy was nondiagnostic. A follow-up transvaginal ultrasound still showed significantly abnormal endometrium. She ultimately underwent hysteroscopy on 01/04/2018 which showed evidence of endometrial polyp in the posterior uterine wall. She underwent polypectomy and the pathology was benign. She restarted tamoxifen in June 2018. During follow-up she continued to have some mild vaginal discharge. She initially had mild hot flashes, but she otherwise tolerated it well. 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 During further follow-up she has been doing well clinically. She continues to tolerate the tamoxifen with no significant adverse effects. Thus far there has been no evidence of recurrence of the breast cancer. She will continue her adjuvant hormonal therapy with tamoxifen 20 mg daily. I will see her again in 6 months. Signed By: Diomedes Licona M.D. <<Signature on File>>
== END 2021-01-14 13:56 | disposition home or self-care (01) ==
LOC: ONCMED 13:59
PROVIDERS: PCP Family Medicine; Visit Provider Internal Medicine Medical Oncology
DX: C50.811 Malignant neoplasm of overlapping sites of right female breast (principal); Z17.0 Estrogen receptor positive status [ER+]; I10 Essential (primary) hypertension; E78.5 Hyperlipidemia, unspecified; K21.9 Gastro-esophageal reflux disease without esophagitis; Z79.811 Long term (current) use of aromatase inhibitors; Z90.11 Acquired absence of right breast and nipple
CPT/HCPCS: 99214

== ENCOUNTER 2021-07-21 07:34 | Outpatient (CLI) | payer MEDICARE, OTHER, SELFPAY ==
--- NOTE | 2021-07-21 07:46 | MM_ITS ---
WS: [id number] BILATERAL DIGITAL DIAGNOSTIC MAMMOGRAM MAMMOGRAPHY WITH CAD CLINICAL INFORMATION: HX OF BREAST CA COMPARISON: July 11, 2020 TECHNIQUE: Bilateral CC, MLO, and ML views. FINDINGS: Scattered fibroglandular densities bilaterally. Vascular calcification. Stable punctate calcification s. Stable parenchymal fibrosis RIGHT breast. No suspicious focal mass, asymmetry, calcifications, or architectural distortion. No evidence of dasia gnancy. MM/[place] [id number] IMPRESSION: BI-RADS: 2-Benign FOLLOW UP: 1 Year Follow-up Recommend return to annual diagnostic mammography.
[2021-07-21 08:56] LABS: Basophils % 0.3 %; Eosinophils # 0.2 10^3/uL (0.0-0.8); Eosinophils % 2.9 %; Hematocrit 41.6 % (37.0-47.0); Hemoglobin 13.4 g/dL (11.5-15.3); Lymphocytes # 2.5 10^3/uL (0.8-4.8); Lymphocytes % 31.5 %; Mean Corpuscular HGB Conc 32.2 g/dL (30.0-36.0); Mean Corpuscular Hemoglobin 29.3 pg (28.0-34.0); Mean Corpuscular Volume 90.8 fl (81-99); Mean Platelet Volume 11.6 fL (7.4-10.4); Monocytes # 0.6 10^3/uL (0.2-0.9); Monocytes % 7.7 %; Neutrophils # 4.54 10^3/uL (1.8-7.7); Neutrophils % 57.3 %; Nucleated Red Blood Cells % 0 %; Platelet Count 264 10^3/cmm (130-400); Red Blood Count 4.58 10^6/uL (4.1-5.3); Red Cell Distribution Width 13.7 % (12.1-15.1); White Blood Count 7.9 10^3/uL (4.0-10.0)
[2021-07-21 09:18] LABS: Alanine Aminotransferase 11 U/L (0-33); Albumin Level 4.4 g/dL (3.5-5.2); Alkaline Phosphatase 67 IU/L (35-105); Anion Gap 13.1 (5-19); Aspartate Amino Transferase 20 U/L (0-32); Blood Urea Nitrogen 10 mg/dL (8-23); Calcium 8.8 mg/dL (8.5-10.5); Carbon Dioxide 29 mmol/L (22-29); Chloride 100 mmol/L (98-107); Glucose 96 mg/dL (65-115); Osmolality Calculated 285 mOsm/kg (285-295); Potassium 4.1 mmol/L (3.5-5.1); Sodium 138 mmol/L (136-145); Total Bilirubin 0.3 mg/dL (0.15-1.2); Total Protein 7.4 g/dL (6.6-8.7)
== END 2021-07-21 07:35 | disposition home or self-care (01) ==
LOC: RADSHAW 07:40 → ONCMED 07:46
PROVIDERS: PCP Family Medicine; Visit Provider Internal Medicine Medical Oncology
DX: C50.511 Malignant neoplasm of lower-outer quadrant of right female breast (principal); Z17.0 Estrogen receptor positive status [ER+]; Z79.810 Long term (current) use of selective estrogen receptor modulators (SERMs)
CPT/HCPCS: 36415; 77066; 80053; 85025

== ENCOUNTER 2021-07-28 10:44 | Outpatient (CLI) | payer MEDICARE, OTHER, SELFPAY ==
--- NOTE | 2021-07-31 06:55 | ONC FU_ITS ---
Dr. Licona Patient Follow-Up Note Patient: Soledad Varma Unit #: [id number]: 1935 Dicatated By: Diomedes Licona M.D.Date of Visit:Jul 28, 2021 Onc Med Follow-up/Prog Note Chief Complaint: Breast cancer. History of Present Illness: This is an 85 year-old woman with grade 2 infiltrating ductal carcinoma of the right breast, stage IA (T1c, N0, M0), ER/WI positive and HER-2/katie nonamplified. She had presented in January 2016 with an abnormal screening mammogram which showed increased asymmetry in the anterior central right breast, BI-RADS 0. Further evaluation with diagnostic mammogram on 03/25/2016 revealed no definite mass lesion or architectural distortion. Ultrasound at that time, however, showed an oval-shaped hypoechoic mass in the deep 9 to 10:00 position of the right breast at 2 cm from the nipple. It measured 1.4 x 0.8 x 1.1 cm, and it was BI-RADS Category 4A, suspicious. Ultrasound-guided needle biopsy on 04/27/2016 was nondiagnostic. She was referred to Dr. Ludwig. Excisional biopsy on 06/18/2016 showed grade 2/3 infiltrating ductal carcinoma08/05/2016 measuring 1.2 x 1.1 cm. There was tumor present at the posterior inked margin and there is tumor within 1 mm of the anterior inked margin. The breast prognostic profile showed ER positive at 99% and WI positive at 99%. The tumor was negative for overexpression of HER-2/katie, 0+ by IHC, amplification ratio 1.1 by FISH with 1.9 HER-2/katie copies/cell. The Ki-67 was favorable at 4%. She underwent reexcision lumpectomy with axillary sentinel lymph node biopsy on 07/16/2016. Pathology showed no residual carcinoma in the reexcision specimen. There was no involvement in 7 lymph nodes. As such, her disease was stage IA (T1c, N0, M0). I had seen her initially on 08/05/2016. Her primary concern at that time was that she did not want any treatment which would potentially make her sick or weaken her bones. She did not want to have breast radiation. She did agree to take adjuvant hormonal therapy with tamoxifen, but not an aromatase inhibitor. On 11/05/2017 she was admitted to the hospital after presenting to the emergency room with abdominal pain and vomiting. Her CT abdomen/pelvis showed mildly dilated fluid-filled loops of small bowel suspicious for early or partial small bowel obstruction. Also noted was an abnormally prominent uterine profile containing heterogeneous low-attenuation material within the endometrial canal. It was noted to be an abnormal finding for a postmenopausal patient. Her GI symptoms improved with conservative management. She was discharged home on 11/14/2017. Her tamoxifen was discontinued. She then underwent an endometrial sampling/biopsy on 11/17/2017. Pathology showed just a scant fragments of superficial endometrial glands and numerous macrophages. There was no malignancy, hyperplasia, or chronic endometritis identified. She had further evaluation with transvaginal ultrasound on 12/06/2017. It showed markedly abnormal endometrium containing cystic areas. There appeared to be progression of the endometrial changes compared to 11/05/2017 ultrasound. On 01/04/2018 she underwent hysteroscopy with findings of a polyp arising from the posterior uterine wall. She underwent hysteroscopic polypectomy with Myosre. Pathology was benign. I had seen her for a follow-up visit in June 2018. After conferring with Dr. Blount, I did have her restart adjuvant hormonal therapy with tamoxifen 20 mg daily. As of her follow-up visit on 01/14/2021 she was tolerating it with no adverse effects. She was doing well clinically with no evidence of recurrence of the breast cancer. She continued adjuvant hormonal therapy with tamoxifen 20 mg daily. Her other medical illnesses include hypertension, hyperlipidemia, and GERD. She is a nonsmoker. INTERIM HISTORY: She is seen for a follow-up visit. She says her energy is better now than it was. She has normal activity. ECOG score is 0. Her appetite also has improved. She has not had fever. She still has some hot flashes, but they have mostly passed. She has a little sinus drainage. She has just very occasional cough now. She does not complain of shortness of breath or chest pain. She has no GI or complaints. She has no significant joint or bone pain. She does report occasional muscle cramps in her feet. She does not complain of headache or dizziness. She has some numbness in the median nerve distribution of the right hand, but it is intermittent. Medications: Aspirin 1 Tablet (of 81 mg) Oral daily, Bisoprolol Fumarate 0.5 Tablet (of 5 mg) Oral daily, Calcium 600 + D 1 (600-200 mg - Units) Tablet Oral daily, Cetirizine HCl 1 Tablet (of 10 mg) Oral daily, Cyclobenzaprine HCl 1 (10 mg) Tablet Oral daily PRN, Fish Oil 1 (1200 mg) Capsule Oral daily, Flonase 2 spray(s) (of 50 mcg/act) Suspension Nasal daily, Garlic 1 (1000 mg) Capsule Oral daily, Multivitamin Adult 1 Tablet Oral daily, Niacin 1 (100 mg) Tablet Oral daily, Pepcid 1 Tablet (of 20 mg) Oral daily PRN, Probiotic 1 Capsule Oral daily, Tamoxifen Citrate 1 Tablet (of 20 mg) Oral daily, Vitamin D Capsule Oral Take as Directed Allergies: No Known Allergies. Vital Signs: Performed on Jul 28, 2021 11:07 Height - 61.00 in Weight - 129.4 lbs (LOW) BSA - 1.57 sq.m BMI - 24.45 Temperature - 97.8 F (LOW) Pulse - 88 /min Respiration - 18 /min BP - 164/82 mm(hg) (HIGH) O2 Sat - 94 % (LOW) Pain - 0 Fatigue - 2 Physical Examination: Constitutional - She looks good generally, Eyes - Sclerae nonicteric. Conjunctivae clear, ENMT - No lesions noted in the oral cavity, Hematologic/Lymphatic - No cervical, clavicular, or axillary adenopathy, Respiratory - Lungs are clear with good air movement bilaterally, Cardiovascular - Heart rhythm is regular. There is a III/ systolic murmur. There is no gallop or rub noted, Abdomen - Soft. Liver and spleen are not enlarged. There is no abdominal mass or ascites noted and there is no inguinal adenopathy, Extremities - No edema, Neurologic - No focal neurologic deficits noted. Lab/Imaging: CBC shows hemoglobin 13.4 g, white blood cell count 7900, and platelet count 264,000. Comprehensive metabolic profile is unremarkable. Problem List: 1. Grade 2 infiltrating ductal carcinoma of the right breast, stage IA (T1c, N0, M0), ER/WI positive and HER-2/katie nonamplified. She underwent excisional biopsy of the right breast on 06/18/2016 followed by reexcision lumpectomy and axillary sentinel lymph node biopsy on 07/16/2016. She did not want to have breast radiation. She was willing to take adjuvant hormonal therapy with tamoxifen, but not an aromatase inhibitor. She began treatment with tamoxifen 20 mg daily in August 2016. 2. Hypertension. 3. Hyperlipidemia. 4. GERD. Problems Addressed with this Encounter and Plan: Patient with grade 2 infiltrating ductal carcinoma of the right breast, stage IA (T1c, N0, M0), ER/WI positive and HER-2/katie nonamplified. She underwent excisional biopsy of the right breast on 06/18/2016 followed by reexcision lumpectomy and axillary sentinel lymph node biopsy on 07/16/2016. She did not want to have breast radiation. She was willing to take adjuvant hormonal therapy with tamoxifen, but not an aromatase inhibitor. She began treatment with tamoxifen 20 mg daily in August 2016. In November [address] scans showed findings in the endometrium which were suspicious for endometrial cancer. Her tamoxifen was discontinued. The initial endometrial biopsy was nondiagnostic. A follow-up transvaginal ultrasound still showed significantly abnormal endometrium. She ultimately underwent hysteroscopy on 01/04/2018 which showed evidence of endometrial polyp in the posterior uterine wall. She underwent polypectomy and the pathology was benign. She restarted tamoxifen in June 2018. During follow-up she continued to have some mild vaginal discharge. She initially had mild hot flashes, but she otherwise tolerated it well. She continued regular [employer] follow-up with Dr. Blount. During subsequent follow-up she has been doing well clinically. She continues to tolerate the tamoxifen with no significant adverse effects. Thus far there has been no evidence of recurrence of the breast cancer. She will continue her adjuvant hormonal therapy with tamoxifen 20 mg daily. I will see her again in 6 months. Signed By: Diomedes Licona M.D. <<Signature on File>>
== END 2021-07-28 10:45 | disposition home or self-care (01) ==
LOC: ONCMED 10:46
PROVIDERS: PCP Family Medicine; Visit Provider Internal Medicine Medical Oncology
DX: Z85.3 Personal history of malignant neoplasm of breast (principal); I10 Essential (primary) hypertension; E78.5 Hyperlipidemia, unspecified; K21.9 Gastro-esophageal reflux disease without esophagitis; Z79.899 Other long term (current) drug therapy
CPT/HCPCS: 99214

== ENCOUNTER 2022-02-27 08:06 | Oncology outpatient (recurring) (ONCR) | payer MEDICARE, OTHER, SELFPAY ==
[2022-02-27 09:06] LABS: Basophils % 0.2 %; Eosinophils # 0.2 10^3/uL (0.0-0.8); Eosinophils % 2.9 %; Hemoglobin 13.4 g/dL (11.5-15.3); Lymphocytes # 2.6 10^3/uL (0.8-4.8); Lymphocytes % 30.8 %; Mean Corpuscular HGB Conc 32.7 g/dL (30.0-36.0); Mean Corpuscular Hemoglobin 30.2 pg (28.0-34.0); Mean Corpuscular Volume 92.3 fl (81-99); Mean Platelet Volume 11.9 fL (7.4-10.4); Monocytes # 0.7 10^3/uL (0.2-0.9); Monocytes % 8.7 %; Neutrophils # 4.71 10^3/uL (1.8-7.7); Nucleated Red Blood Cells % 0 %; Platelet Count 199 10^3/cmm (130-400); Red Blood Count 4.44 10^6/uL (4.1-5.3); Red Cell Distribution Width 12.8 % (12.1-15.1); White Blood Count 8.3 10^3/uL (4.0-10.0)
[2022-02-27 09:25] LABS: Alanine Aminotransferase 12 U/L (0-33); Albumin Level 3.9 g/dL (3.5-5.2); Alkaline Phosphatase 67 U/L (35-105); Anion Gap 14.4 (5-19); Aspartate Amino Transferase 24 U/L (0-32); Blood Urea Nitrogen 9 mg/dL (8-23); Calcium 9.4 mg/dL (8.5-10.5); Carbon Dioxide 28 mmol/L (22-29); Chloride 99 mmol/L (98-107); Globulin 3.5 g/dL (1.3-4.6); Glucose 106 mg/dL (65-115); Osmolality Calculated 283 mOsm/kg (285-295); Potassium 4.4 mmol/L (3.5-5.1); Sodium 137 mmol/L (136-145); Total Bilirubin 0.3 mg/dL (0.15-1.2); Total Protein 7.4 g/dL (6.6-8.7)
== END 2022-03-06 23:59 | disposition home or self-care (01) ==
PROVIDERS: PCP Family Medicine; Visit Provider Internal Medicine Medical Oncology
DX: C50.511 Malignant neoplasm of lower-outer quadrant of right female breast (principal); Z79.818 Long term (current) use of other agents affecting estrogen receptors and estrogen levels; Z17.0 Estrogen receptor positive status [ER+]
CPT/HCPCS: 36415; 80053; 85025; 99214

== ENCOUNTER 2022-04-06 10:57 | Inpatient (IN) | payer MEDICARE, OTHER, SELFPAY ==
[2022-04-06] VITALS (64 sets, daily range): BP systolic 124–196; BP diastolic 64–96; PULSE 106–146; RESP 13–44; TEMP 36.7–36.8; O2SAT 88–99; BMI 24.0
--- NOTE | 2022-04-06 12:14 | XRR_ITS ---
PROCEDURE INFORMATION: Exam: XR Chest Exam date and time: 04/06/2022 12:30 PM Age: 86 years old Clinical indication: Cough TECHNIQUE: Imaging protocol: Radiologic exam of the chest. Views: 2 views. Total images: 3111 COMPARISON: CR XR chest 2V* [id number] 11/05/2017 5:19 AM FINDINGS: Lungs: Coarse chronic pulmonary markings with increased ground-glass and and irregular areas of consolidation in the right lower lobe is nonspecific but may represent pneumonia. Pleural spaces: Unremarkable. No pleural effusion. No pneumothorax. Heart/Mediastinum: Heart size is stable when compared to the prior exam. Vasculature: Atherosclerosis is evident. Bones/joints: Diffuse osteopenia noted. Osseous structures are unchanged from the prior exam. XR/XR chest 2V* [id number] IMPRESSION: Coarse chronic pulmonary markings with increased ground-glass and and irregular areas of consolidation in the right lower lobe is nonspecific but may represent pneumonia.
--- NOTE | 2022-04-06 12:40 | ECG_ITS ---
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 Measurements Intervals [place] Rate: 117 P: 65 UT: 161 QRS: -66 QRSD: 127 T: 105 QT: 329 QTc: 459 Interpretive Statements SINUS TACHYCARDIA POSSIBLE LEFT ATRIAL ENLARGEMENT [-0.1mV P-WAVE IN V1/V2] RIGHT BUNDLE BRANCH BLOCK [120+ ms QRS DURATION, UPRIGHT V1, 40+ ms S IN I/aVL/V4/V5/V6] LEFT ANTERIOR FASCICULAR BLOCK [QRS AXIS <= -45, QR IN I, RS IN II] LEFT VENTRICULAR HYPERTROPHY Compared to ECG 11/05/2017 11:14:36 Right bundle-branch block now present ST (T wave) deviation now present Sinus rhythm no longer present T-wave abnormality no longer present Possible ischemia no longer present Myocardial infarct finding still present Electronically Signed On 04-06-2022 14:55:42 CDT by Freddy Oconnor M.D. [id number]
--- NOTE | 2022-04-06 12:45 | W.ED.SOB ---
HPI - SOB/Dyspnea General: Chief Complaint: Shortness of Breath/Dyspnea Stated Complaint: SOB, congestion Time Seen by Provider: 04/06/22 12:35 Source: patient and family Mode of arrival: ambulatory Limitations: no limitations History of Present Illness: HPI Narrative: This lady presents to the emergency department accompanied by her spouse. She states that she started coughing last Wednesday and has persisted since that time and in fact it is worsened. She is now producing discolored sputum whereas before she was not. She states her appetites been decreased over the last 2 days and that she has to sit up more upright in bed to breathe easier. She states that she does not feel like eating much today and she feel like she is working a little bit hard to breathe. She denies any chest pain, history of cardiovascular disease, history of cardiopulmonary disease. She is normally very healthy for her age and is quite active. Nontobacco user. No known exposure to infectious disease. MD elicited complaint: cough Timing: progressively worsening Severity: moderate Relieving factors: nothing Associated symptoms: Reports cough; Deny abdominal pain, chest pain, extremity pain, fever(s), hemoptysis, nausea, palpitations, polydipsia, polyuria, syncope or vomiting Review of Systems Const: Reports: body aches, change in appetite and fatigue; Denies: fever(s) Eyes: Denies: change in vision ENMT: Denies: throat pain, odynophagia, nasal discharge or nasal congestion Card: Denies: chest pain, palpitations, syncope or pre-syncope Resp: Reports: productive cough; Denies: wheezing or hemoptysis GI: Denies: abdominal pain, nausea, vomiting or diarrhea : Denies: flank pain, difficulty voiding, dysuria or urinary frequency Musc: Denies: neck pain, back pain, extremity pain or extremity swelling Skin/Breast: Denies: rash Neuro: Denies: headache(s), numbness in extremities or weakness in extremities Psych: Denies: anxiety or depression Endo: Denies: polyuria or polydipsia PFS ED PFSH: Medical History Aortic regurgitation Echo in 2014 had reported mild to moderate aortic regurgitation. Echo on 11/05/2017 indicated worsening aortic insufficiency now to a moderate degree. Aortic stenosis Echo in 11/2017 showed moderate aortic stenosis. Breast cancer Gastroesophageal reflux History of small bowel obstruction In 11/2017. Managed by Dr. Ray Hyperlipemia Hypertension Surgical History H/O tubal ligation (~1971) History of cataract surgery History of lung biopsy (2016) S/P lumpectomy, right breast Right breast lumpectomy on 06/18/2016 followed by reexcision lumpectomy and right axillary sentinel lymph node biopsy on 07/16/2016 Status post ectopic Surgical treatment of ectopic Status post hysteroscopic polypectomy (01/04/18) With Myosure. Dx: Thickened endometrial lining on ultrasound, Endometrial polyp. Performed by Dr. Blount at [facility] in [place], [place]. Family History Father Heart disease Mother Heart disease Family history of thyroid problem Brother Heart disease Cancer Prostate and kidney Social History Smoking and tobacco status: never smoked Physical Exam Narrative: EXAM NARRATIVE: She is alert and pleasant elderly female who is slightly dyspneic on examination. Const: COMMON NORMALS: average body habitus, patient oriented x3, no limitations and alert HENMT: COMMON NORMALS: normocephalic, Normal nasal mucous membranes and turbinates present, moist oral mucous membranes and oropharynx normal HEAD & SCALP: normocephalic FACE & SINUS: normal facial exam NOSE: Normal nasal mucous membranes and turbinates present Eye: COMMON NORMALS: Equal, round and reactive pupils present, EOMs intact bilaterally and conjunctivae normal CONJUNCTIVA: Yes conjunctivae normal PUPIL: Yes Equal, round and reactive pupils present Neck/C-Spine: COMMON NORMALS: full ROM, no JVD and No carotid bruits Chest: COMMONS NORMALS: normal inspection of the chest and normal palpation of entire chest wall Resp: AUSCULTATION: crackles Laterality: right, anterior and posterior and rhonchi right upper, left lower and right lower Cardio: COMMON NORMALS: no JVD, regular rate, regular rhythm and Peripheral pulses 2+ throughout RATE: regular rate RHYTHM: regular rhythm PERIPHERAL PULSES: Peripheral pulses 2+ throughout GI: COMMON NORMALS: Soft to palpation and non-tender PALPATION: Yes Soft to palpation : COMMON NORMALS: Yes no CVA tenderness BLADDER/KIDNEY EXAM: Yes no CVA tenderness Back/Pelvis: COMMON NORMALS: no CVA tenderness, thoracic and lumbar spine normal to inspection, no thoracic nor lumbar tenderness and thoraco-lumbar ROM normal Extremity: COMMON NORMALS: normal to inspection, full ROM, capillary refill normal and no calf tenderness Neuro: COMMON NORMALS: patient oriented x3, moves all extremities and no focal motor deficits SENSORIUM/ORIENTATION: Yes alert Psych: COMMON NORMALS: mental status grossly normal, cooperative and speech normal SPEECH: Yes normal speech Skin: COMMON NORMALS: no rashes or lesions noted and turgor normal GENERAL SKIN EXAM: no rashes or lesions noted and turgor normal Course Reevaluation(s): Reevaluation #1: The patient has become a bit more tachycardic in the interim. She denies any chest pain or other symptoms at this time. Repeat EKG shows some increase discordance of her ST segments anteriorly. Will consult with cardiology regarding concerns about possible ongoing ischemia. Her initial troponin was slightly elevated. Time: 15:26 Consultations: Consultation #1: Discussed with Dr. Oconnor who will review the tracings. After review he did not feel that these represent an acute ischemic EKG change. Her 2-hour troponin is also reassuring and fallen. Time: 15:32 Vital Signs: Vital signs: Vital Signs Temperature 98.1 F 04/06/22 11:07 Pulse Rate 133 H 04/06/22 15:00 Respiratory Rate 31 H 04/06/22 15:00 Blood Pressure 166/92 04/06/22 15:00 Pulse Oximetry 98 04/06/22 15:00 Oxygen Delivery Me thod 04/06/22 14:43 Oxygen Flow Rate 3 04/06/22 14:43 MDM - SOB/Dyspnea Medical Decision Making 86-year-old lady with progressive respiratory symptoms with productive cough. She presents somewhat tachycardic, slightly dyspneic with conversation. Chest x-ray shows right lobe infiltrate. Consistent with community-acquired pneumonia however her pneumonia severity score would indicate that she would likely do better with short stay hospitalization. Because of tachycardia and elevated a D-dimer was ordered which was elevated. Did not show any evidence of pulmonary embolus but it did show some other findings which were supportive of likely pneumonia in addition to possible consideration of metastatic disease. Discussed with the hospitalist who will admit her for continued antibiotics as well as additional consultation and treatment as indicated. Medical Records I reviewed the patient's medical records. Lab Data I reviewed the patient's lab results. : 04/06/22 12:54 04/06/22 12:54 Labs/Radiology: Radiology Impressions Chest X-Ray 04/06/22 12:14 IMPRESSION: Coarse chronic pulmonary markings with increased ground-glass and and irregular areas of consolidation in the right lower lobe is nonspecific but may represent pneumonia. Chest CTA 04/06/22 13:56 IMPRESSION: 1. No evidence of pulmonary embolus. 2. Diffuse tissue thickening about the RIGHT hilum and infrahilum nonspecific but suspicious for neoplasm. This can be further evaluated with bronchoscopy. Recommend Pulmonary consult. 3. Subsegmental atelectasis involving the RIGHT middle lobe with opacification of the RIGHT bronchus intermedius 4. Precarinal and subcarinal lymphadenopathy. RIGHT hilar lymphadenopathy. 5. Coarse fibrotic appearing infiltrates throughout the RIGHT lung and LEFT lower lobe. Recommend correlation for pneumonia. Attempted notification Mauricio Meier DO at 04/06/2022 3:00 PM. Laboratory Results WBC 22.3 10^3/uL (4.0-10.0) H 04/06/22 12:54 RBC 4.51 10^6/uL (4.1-5.3) 04/06/22 12:54 Hgb 13.8 g/dL (11.5-15.3) 04/06/22 12:54 Hct 39.6 % (37.0-47.0) 04/06/22 12:54 MCV 87.8 fl (81-99) 04/06/22 12:54 MCH 30.6 pg (28.0-34.0) 04/06/22 12:54 MCHC 34.8 g/dL (30.0-36.0) 04/06/22 12:54 RDW 13.0 % (12.1-15.1) 04/06/22 12:54 Plt Count 243 10^3/cmm (130-400) 04/06/22 12:54 MPV 12.1 fL (7.4-10.4) H 04/06/22 12:54 Neut % (Auto) 82.2 % 04/06/22 12:54 Lymph % (Auto) 7.3 % 04/06/22 12:54 Dillon % (Auto) 8.9 % 04/06/22 12:54 Eos % (Auto) 0.2 % 04/06/22 12:54 Baso % (Auto) 0.4 % 04/06/22 12:54 Neut # (Auto) 18.36 10^3/uL (1.8-7.7) H 04/06/22 12:54 Lymph # (Auto) 1.6 10^3/uL (0.8-4.8) 04/06/22 12:54 Dillon # (Auto) 2.0 10^3/uL (0.2-0.9) H 04/06/22 12:54 Eos # (Auto) 0.0 10^3/uL (0.0-0.8) 04/06/22 12:54 Baso # (Auto) 0.1 10^3/uL (0.0-0.1) 04/06/22 12:54 Nucleated RBC % (auto) 0 % 04/06/22 12:54 Nucleated RBCs # 0.0 /100WBC 04/06/22 12:54 D-Dimer 2.59 ug/mIFEU (0-0.59) H 04/06/22 12:54 Specimen Type Arterial 04/06/22 15:37 Sample Site Radial, right 04/06/22 15:37 ABG pH 7.41 (7.35-7.45) 04/06/22 15:37 ABG pCO2 37.5 mmHg (35-45) 04/06/22 15:37 ABG pO2 92.4 mmHg (80.0-100.0) 04/06/22 15:37 ABG HCO3 23.6 mmol/L (22-26) 04/06/22 15:37 ABG O2 Saturation 98.3 04/06/22 15:37 ABG Base Excess -0.9 mmol/L (-2.0-2.0) 04/06/22 15:37 Sina Test Pos 04/06/22 15:37 A-a O2 Gradient 1.2 mmHg (5-10) L 04/06/22 15:37 Hematocrit 37.7 % (37-47) 04/06/22 15:37 Hgb O2 Saturation 96.5 % (95-100) 04/06/22 15:37 Carboxyhemoglobin 1.3 %THgb (0.4-20.1) 04/06/22 15:37 Methemoglobin 0.6 % (0.4-1.5) 04/06/22 15:37 Total Hemoglobin 12.3 g/dL (12-16) 04/06/22 15:37 Sodium 127.0 mmol/L (131-143) L 04/06/22 15:37 Potassium 3.8 mmol/L (3.5-5.0) 04/06/22 15:37 Glucose 99.0 mg/dL (70-115) 04/06/22 15:37 Ionized Calcium 1.1 mmol/L (1.1-1.4) 04/06/22 15:37 O2 Delivery Device Nc 04/06/22 15:37 Aluminum Hydroxide Process Operator ID Clarro 04/06/22 15:37 Sodium 128 mmol/L (136-145) L 04/06/22 12:54 Potassium 4.1 mmol/L (3.5-5.1) 04/06/22 12:54 Chloride 90 mmol/L (98-107) L 04/06/22 12:54 Carbon Dioxide 24 mmol/L (22-29) 04/06/22 12:54 Anion Gap 18.1 (5-19) 04/06/22 12:54 BUN 17 mg/dL (8-23) 04/06/22 12:54 Creatinine 0.6 mg/dL (0.5-0.9) 04/06/22 12:54 GFR Calculation Not Reportable 04/06/22 12:54 Glucose 147 mg/dL (65-115) H 04/06/22 12:54 Calculated Osmolality 270 mOsm/kg (285-295) L 04/06/22 12:54 Lactate 1.9 mmol/L (0.5-2.2) 04/06/22 12:54 Calcium 9.4 mg/dL (8.5-10.5) 04/06/22 12:54 Total Bilirubin 0.5 mg/dL (0.15-1.2) 04/06/22 12:54 AST 19 U/L (0-32) 04/06/22 12:54 ALT 15 U/L (0-33) 04/06/22 12:54 Alkaline Phosphatase 111 U/L (35-105) H 04/06/22 12:54 Troponin T Baseline 29 ng/L (0-10) H 04/06/22 12:54 Troponin T 120 Minute 25.43 ng/L (0-10) H 04/06/22 15:20 Delta Troponin T -3.57 ABS# (0-10) L 04/06/22 15:20 Total Protein 7.1 g/dL (6.6-8.7) 04/06/22 12:54 Albumin 3.8 g/dL (3.5-5.2) 04/06/22 12:54 Globulin 3.3 g/dL (1.3-4.6) 04/06/22 12:54 Coronavirus 229E (PCR) Not detected (NOT DETECT) 04/06/22 13:49 Human Metapneumovir PCR Not detected (NOT DETECT) 04/06/22 15:45 Entero/Rhino (PCR) Detected (NOT DETECT) A 04/06/22 15:45 SARS-CoV-2 (PCR) Not detected (NOT DETECT) 04/06/22 13:49 Discharge Plan Discharge Patient Disposition: Admitted As Inpatient Clinical Impression: Right lower lobe pneumonia Condition: Stable Prescriptions: No Action aspirin [Tigre Chewable Aspirin] 81 mg tablet,chewable 81 mg PO DAILY bisoprolol fumarate 5 mg tablet 2.5 mg PO DAILY calcium carbonate-vitamin D3 [Calcium 600 with Vitamin D3] 600 mg(1,500mg) -500 unit capsule 1 cap PO DAILY cetirizine [All Day Allergy (cetirizine)] 10 mg tablet 10 mg PO DAILY cyclobenzaprine 10 mg tablet 10 mg PO BEDTIME fluticasone furoate 27.5 mcg/actuation spray,suspension 2 spray INTRANASAL DAILY Rx Instructions: into each nostril garlic 1,000 mg capsule 1,000 mg PO DAILY multivitamin Tablet 1 tab PO DAILY niacin 100 mg tablet 100 mg PO DAILY omega-3 fatty acids 1,000 mg capsule 1,000 mg PO DAILY doxycycline hyclate 100 mg tablet 100 mg PO BID Probiotic 5 billion cell Capsule, Sprinkle 1 cap PO DAILY Referrals: Liu Clancy MD [Primary Care Provider] - Coding Level of Care Code ED Other Wood Processing Machine Operator for g Fwd Exam Comprehensive
[2022-04-06 13:27] LABS: Basophils # 0.1 10^3/uL (0.0-0.1); Basophils % 0.4 %; Eosinophils % 0.2 %; Hematocrit 39.6 % (37.0-47.0); Hemoglobin 13.8 g/dL (11.5-15.3); Lymphocytes # 1.6 10^3/uL (0.8-4.8); Lymphocytes % 7.3 %; Mean Corpuscular HGB Conc 34.8 g/dL (30.0-36.0); Mean Corpuscular Hemoglobin 30.6 pg (28.0-34.0); Mean Corpuscular Volume 87.8 fl (81-99); Mean Platelet Volume 12.1 fL (7.4-10.4); Monocytes % 8.9 %; Neutrophils # 18.36 10^3/uL (1.8-7.7); Neutrophils % 82.2 %; Nucleated Red Blood Cells % 0 %; Platelet Count 243 10^3/cmm (130-400); Red Blood Count 4.51 10^6/uL (4.1-5.3); White Blood Count 22.3 10^3/uL (4.0-10.0)
[2022-04-06] MEDS: cefTRIAXone 2,000 MG in sodium chloride 0.9% (plus) 50 ML 100 MG IV (13:41)
[2022-04-06] MEDS: sodium chloride 0.9% 1,000 ML 999 ML IV ×2 (13:41→15:27)
[2022-04-06 13:47] LABS: Alanine Aminotransferase 15 U/L (0-33); Albumin Level 3.8 g/dL (3.5-5.2); Alkaline Phosphatase 111 U/L (35-105); Anion Gap 18.1 (5-19); Aspartate Amino Transferase 19 U/L (0-32); Blood Urea Nitrogen 17 mg/dL (8-23); Calcium 9.4 mg/dL (8.5-10.5); Carbon Dioxide 24 mmol/L (22-29); Chloride 90 mmol/L (98-107); Globulin 3.3 g/dL (1.3-4.6); Glucose 147 mg/dL (65-115); Lactate (Lactic Acid level) 1.9 mmol/L (0.5-2.2); Osmolality Calculated 270 mOsm/kg (285-295); Potassium 4.1 mmol/L (3.5-5.1); Sodium 128 mmol/L (136-145); Total Bilirubin 0.5 mg/dL (0.15-1.2); Total Protein 7.1 g/dL (6.6-8.7)
[2022-04-06 13:48] LABS: Troponin(5th) Baseline 29 ng/L (0-10)
[2022-04-06 13:49] LABS: D Dimer 2.59 ug/mIFEU (0-0.59)
--- NOTE | 2022-04-06 13:56 | CT_ITS ---
WS: [id number] CTA OF THE CHEST WITH PULMONARY EMBOLISM PROTOCOL TECHNIQUE: High-resolution contrast enhanced CTA of the chest with coronal and sagittal reformatted i mages with pulmonary embolism protocol. MIP images are also reviewed. CLINICAL INFORMATION: sob, elevated dimer COMPARISON: CT chest 2017 DLP: 184.[address] scans at [facility] use at least one of these dose optimization techniques: automated e xposure control; mA and/or kV adjustment per patient size (includes targeted exams where dose is matc hed to clinical indication); or iterative reconstruction. FINDINGS: Proximal main pulmonary arteries are normal. Normal segmental and subsegmental pulmonary arteries. No evidence of pulmonary embolus. Cardiomegaly. Chronic emphysematous changes. Fibrotic nodular appearing infiltrates in the RIGHT uppe r lobe along the fissure and bilateral lower lobes RIGHT greater than LEFT. RIGHT hilar mass/soft tissue thickening with partial opacification the RIGHT middle lobe and lower lo be bronchi. Precarinal and subcarinal bulky lymphadenopathy. RIGHT hilar lymphadenopathy. Subsegmenta l atelectasis within the RIGHT middle lobe. Moderate thoracic kyphosis. Mild chronic anterior wedging in the mid thoracic spine. CT/CT angio chest PE protcl [id number] IMPRESSION: 1. No evidence of pulmonary embolus. 2. Diffuse tissue thickening about the RIGHT hilum and infrahilum nonspecific but suspicious for neoplasm. This can be further evaluated with bronchoscopy. R ecommend Pulmonary consult. 3. Subsegmental atelectasis involving the RIGHT middle lobe with opacification of the RIGHT bronchus intermedius 4. Precarinal and subcarinal lymphadenopathy. RIGHT hilar lymphadenopathy. 5. Coarse fibrotic appearing infiltrates throughout the RIGHT lung and LEFT lo wer lobe. Recommend correlation for pneumonia. Attempted notification Mauricio Meier DO at 04/06/2022 3:00 PM.
[2022-04-06] MEDS: iohexol 350 mg/mL 500 mL Btl (per mL) IV (14:18)
--- NOTE | 2022-04-06 14:40 | ECG_ITS ---
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 Measurements Intervals [place] Rate: 133 P: -36 OR: 115 QRS: -59 QRSD: 123 T: 96 QT: 300 QTc: 447 Interpretive Statements SINUS TACHYCARDIA WITH SHORT OR INTERVAL POSSIBLE RIGHT VENTRICULAR CONDUCTION DELAY [RSR (QR) IN V1/V2] LEFT ANTERIOR FASCICULAR BLOCK [QRS AXIS <= -45, QR IN I, RS IN II] LEFT VENTRICULAR HYPERTROPHY AND ST-T CHANGE [VOLTAGE CRITERIA PLUS ST/T ABNORMALITY] ANTEROSEPTAL MYOCARDIAL INFARCTION , POSSIBLY ACUTE [40+ ms Q WAVE IN V1-V4] ACUTE VT Compared to ECG 04/06/2022 13:02:44 Short OR interval now present ST (T wave) deviation now present Myocardial infarct finding now present Right bundle-branch block no longer present Electronically Signed On 04-07-2022 21:49:23 CDT by Jose Jerry M.D. [email or web address] Systemsmer[email or web address]/store/[id number]
[2022-04-06 15:33] LABS: ABG PCO2 37.5 mmHg (35-45); ABG PH Result 7.41 (7.35-7.45); Alveolar-Arterial Oxygen Gradi 1.2 mmHg (5-10); Arterial Blood Gas Hematocrit 37.7 % (37-47); Base Excess ABG -0.9 mmol/L (-2.0-2.0); Blood Gas Allen Test Pos; Blood Gas Sample Site Radial, right; Blood Gas Sample Type Arterial; Carboxyhemoglobin 1.3 %THgb (0.4-20.1); HCO3 ABG 23.6 mmol/L (22-26); HGB O2 Sat 96.5 % (95-100); Ionized Calcium Level - ABG 1.1 mmol/L (1.1-1.4); Methemoglobin 0.6 % (0.4-1.5); Oxygen Device NC; Oxygen Saturation ABG 98.3; PO2 ABG 92.4 mmHg (80.0-100.0); Potassium Level - ABG 3.8 mmol/L (3.5-5.0); Total Hemoglobin 12.3 g/dL (12-16)
[2022-04-06 15:43] LABS: Adenovirus Not Detected (NOT DETECT); Chlamydia Pneumoniae Not Detected (NOT DETECT); Coronavirus 229E,HKU1,NL63,OC4 Not Detected (NOT DETECT); Human Metapneumovirus Not Detected (NOT DETECT); Human Rhinovirus/Enterovirus Detected (NOT DETECT); Influenza A Not Detected (NOT DETECT); Influenza A H1 Not Detected (NOT DETECT); Influenza A H1-2009 Not Detected (NOT DETECT); Influenza A H3 Not Detected (NOT DETECT); Influenza B Not Detected (NOT DETECT); Mycoplasma Pneumoniae Not Detected (NOT DETECT); Parainfluenza Virus Type 1 Not Detected (NOT DETECT); Parainfluenza Virus Type 2 Not Detected (NOT DETECT); Parainfluenza Virus Type 3 Not Detected (NOT DETECT); Parainfluenza Virus Type 4 Not Detected (NOT DETECT); Respiratory Syncytial Virus A Not Detected (NOT DETECT); Respiratory Syncytial Virus B Not Detected (NOT DETECT); SARS-COV-2 Not Detected (NOT DETECT)
[2022-04-06 15:46] LABS: Human Metapneumovirus Not Detected (NOT DETECT); Human Rhinovirus/Enterovirus Detected (NOT DETECT); Results from GEN
[2022-04-06 15:46] LABS: Troponin 5 2HR 25.43 ng/L (0-10)
[2022-04-06 15:47] LABS: Troponin 5 2HR Delta -3.57 ABS# (0-10)
--- NOTE | 2022-04-06 16:54 | P.HP_ITS ---
Providers/Chief Complaint Primary Care Provider: Liu Clancy MD Chief Complaint: SOB, congestion History of Present Illness Soledad Varma is a 86 year old female with past medical history of aortic stenosis/aortic regurgitation, diastolic heart failure, breast cancer for which she follows up with Dr. Licona who presents to the ER today because of difficulty in breathing which has been getting worse since last . Today is Wednesday. She states she has been having more difficulty breathing getting worse along with cough and expectoration. She has been using her inhalers regularly but has not helped. She is also complaining of slight palpitations. Denies any nausea vomiting, headache. Complaining of mild diarrhea on and off. States oral intake is decreased as well. Review of Systems General: Reports: 10 or more systems reviewed and unremarkable except in HPI and below Const: Denies: fever(s), chills, body aches, change in appetite, change in weight, malaise, night sweats, diaphoresis, change in sleep pattern, daytime sleepiness or snoring Eyes: Denies: change in vision, blurry vision, photophobia, eye discomfort or eye discharge ENMT: Denies: throat pain, enlarged tonsils, hoarseness, mouth pain, oral sores, dry mouth, tinnitus, nasal congestion or post nasal drip Card: Denies: chest pain, palpitations, irregular heart rhythm, edema, swelling of feet/ankles, lightheadedness, syncope, pre-syncope, dyspnea on exertion, orthopnea, leg pain with exertion or acrocyanosis Resp: Denies: dyspnea, productive cough, non-productive cough, wheezing, stridor, pain on inspiration, change in phlegm color, hemoptysis or chest congestion GI: Denies: abdominal pain, nausea, vomiting, hematemesis, coffee ground emesis, dysphagia, heartburn, diarrhea, constipation, bloating, GI cramping, change in bowel habits, pain on defecation, hematochezia or melena : Denies: flank pain, dysuria, urinary frequency, urinary urgency, urinary hesitancy, nocturia or hematuria Musc: Denies: neck pain, back pain, extremity pain, joint pain, joint swelling, joint redness, joint stiffness or limited range of motion Neuro: Denies: headache(s), numbness in extremities, weakness in extremities, sensory changes, lack of coordination, difficulty walking, frequent falls, dizzi ness, vertigo, confusion, Slurred speech present, difficulty communicating thoughts or seizure-like activity Psych: Denies: anxiety, depression, mood swings, panic attacks, hopelessness or irritability Endo: Denies: polyuria, polydipsia, tired all the time, cold intolerance, excessive sweating, flushing or heat intolerance Arnold/Lymph: Denies: easy bruising or easy bleeding All/Imm: Denies: tongue swelling, facial swelling or acute wheezing Medications/Allergies Home Medications Medication Instructions Recorded Confirmed Last Taken Type aspirin 81 mg chewable tablet 81 mg PO DAILY 03/13/20 04/06/22 04/05/22 History (Tigre Chewable Low Dose Aspirin) bisoprolol fumarate 5 mg tablet 2.5 mg PO DAILY 03/13/20 04/06/22 04/05/22 History calcium carbonate 600 mg-vitamin 1 cap PO DAILY 03/13/20 04/06/22 04/05/22 History D3 12.5 mcg (500 unit) capsule (Calcium 600 with Vitamin D3) cetirizine 10 mg tablet (All Day 10 mg PO DAILY 03/13/20 04/06/22 04/06/22 History Allergy (cetirizine)) cyclobenzaprine 10 mg tablet 10 mg PO BEDTIME 03/13/20 04/06/22 04/05/22 History fluticasone furoate 27.5 2 spray intranasal DAILY 03/13/20 04/06/22 04/05/22 History mcg/actuation nasal spray,suspension garlic 1,000 mg capsule 1,000 mg PO DAILY 03/13/20 04/06/22 04/05/22 History multivitamin 1 tab PO DAILY 03/13/20 04/06/22 04/05/22 History niacin 100 mg tablet 100 mg PO DAILY 03/13/20 04/06/22 04/05/22 History omega-3 fatty acids 1,000 mg 1,000 mg PO DAILY 03/13/20 04/06/22 04/06/22 History capsule Lactobacil.acidophilus-Bifido.animalis 1 cap PO DAILY 04/06/22 04/06/22 04/05/22 History 5 billion cell sprinkle capsule (Probiotic) doxycycline hyclate 100 mg tablet 100 mg PO BID 04/06/22 04/06/22 04/06/22 History Allergies Allergy/AdvReac Type Severity Reaction Status Date / Time No Known Allergies Allergy Verified 04/06/22 13:25 PFSH Acute PFSH: Medical History (Updated 04/06/22 @ 17:05 by Markel Alvares MD) Aortic regurgitation Echo in 2014 had reported mild to moderate aortic regurgitation. Echo on 11/05/2017 indicated worsening aortic insufficiency now to a moderate degree. Aortic stenosis Echo in 11/2017 showed moderate aortic stenosis. Breast cancer Breast cancer, right (~06/2016) Grade 2 infiltrating ductal carcinoma of the right breast, stage IA (T1c, N0, M0), ER/RI positive and HER-2/katie negative. Gastroesophageal reflux History of small bowel obstruction In 11/2017. Managed by Dr. Ray Hyperlipemia Hypertension Surgical History H/O tubal ligation (~1970) History of cataract surgery History of lung biopsy (2016) S/P lumpectomy, right breast Right breast lumpectomy on 06/18/2016 followed by reexcision lumpectomy and right axillary sentinel lymph node biopsy on 07/16/2016 Status post ectopic Surgical treatment of ectopic Status post hysteroscopic polypectomy (01/04/18) With Myosure. Dx: Thickened endometrial lining on ultrasound, Endometrial polyp. Performed by Dr. Blount at [facility] in [place], [place]. Family History Father Heart disease Mother Heart disease Family history of thyroid problem Brother Heart disease Cancer Prostate and kidney Social History Smoking and tobacco status: never smoked Vitals/I&O/Wt Last Vital Signs Temp 98.1 F 04/06/22 11:07 Pulse 133 H 04/06/22 15:00 Resp 31 H 04/06/22 15:00 BP 166/92 04/06/22 15:00 Pulse Ox 98 04/06/22 15:00 O2 Del Method 04/06/22 14:43 O2 Flow Rate 3 04/06/22 14:43 04/06/22 04/06/22 04/06/22 06:59 14:59 22:59 Intake Total 50 / 50 Balance 50 / 50 Weight last 48 hrs Weight 57.606 kg Physical Exam Narrative: EXAM NARRATIVE: General: No acute distress, AO x3, NC oxygen supplementation HEENT: PERRLA, pupils bilaterally equal and reactive Chest:Bronchial breath sounds b/l ,decreased air entry, equal good air entry bilaterally, no more fine basal crackles CVS: S1-S2 regular, no murmurs, no tachycardia, no gallops, no rubs Abdomen: Soft, nontender, no organomegaly, bowel sounds present, morbidly obese Neuro: No focal deficits, no facial deformity, AO x3, power 5/5 in all limbs Data : 04/07/22 05:02 04/07/22 05:02 Other Labs: Radiology Impressions Chest X-Ray 04/06/22 12:14 IMPRESSION: Coarse chronic pulmonary markings with increased ground-glass and and irregular areas of consolidation in the right lower lobe is nonspecific but may represent pneumonia. Chest CTA 04/06/22 13:56 IMPRESSION: 1. No evidence of pulmonary embolus. 2. Diffuse tissue thickening about the RIGHT hilum and infrahilum nonspecific but suspicious for neoplasm. This can be further evaluated with bronchoscopy. Recommend Pulmonary consult. 3. Subsegmental atelectasis involving the RIGHT middle lobe with opacification of the RIGHT bronchus intermedius 4. Precarinal and subcarinal lymphadenopathy. RIGHT hilar lymphadenopathy. 5. Coarse fibrotic appearing infiltrates throughout the RIGHT lung and LEFT lower lobe. Recommend correlation for pneumonia. Attempted notification Mauricio Meier DO at 04/06/2022 3:00 PM. Micro: Microbiology 04/06/22 15:20 Blood Culture - Preliminary Blood SPECIMEN COLLECTED 04/06/22 12:54 Blood Culture - Preliminary Blood SPECIMEN COLLECTED A&P Assessment and plan (1) Hypoxia: Secondary to pneumonia. Less likely from CHF. Pneumonia seen on CTA. Ruled out PE. No history of COPD. Check procalcitonin, proBNP, MRSA swab, echocardiogram to evaluate for aortic stenosis/aortic regurgitation and EF. Ipratropium every 6 hour, Xopenex every 6 hour, budesonide twice daily. Oxygen supplementation keeping saturation over 90%. (2) Right lower lobe pneumonia: CT consistent with community-acquired pneumonia. Sputum culture, blood culture, urinalysis, urine Legionella, bacterial antigen, procalcitonin, MRSA swab. For now empirically start on IV ceftriaxone and oral azithromycin. Will de- escalate antibiotics as per culture results. COVID-19 PCR negative. Positive for enterovirus. (3) Hyponatremia: Acute. Chronically lives more than 135. 128 today. Most likely secondary to mild SIADH versus dehydration. For now start on IV hydration with normal saline at 75 cc/h. Check urinalysis, urine lites, urine creatinine. Monitor BMP daily for now. (4) Tachycardia: Could be secondary dehydration. Cannot rule out atrial fibrillation. Continue with IV hydration as above. Give one-time dose of IV metoprolol 5 mg. Telemetry. (5) Atrial fibrillation: Suspected. We will continue to monitor on telemetry. If continues in atrial fibrillation for more than 24 hours we will start on anticoagulation after discussion. (6) Breast cancer, right: Follows up with Dr. Licona. (7) Aortic stenosis: (8) Aortic regurgitation: (9) Hypertension: Goal blood pressure less than 140/90 mmHg. Takes bisoprolol 2.5 mg daily at home. Will uptitrate medication as per goal. (10) Hyperlipemia: Plan Check iron panel, TSH, CRP, folate, vitamin B12, A1c, lipid panel. Analgesia: Tylenol as needed. Glycemic control: Check A1c, not needed currently Nutrition: Regular diet CODE STATUS: Full code PUD prophylaxis: Famotidine for PUD prophylaxis DVT prophylaxis: Heparin 5000 every 8 hourly for DVT prophylaxis Discharge planning: Home with caregiver once medically stable. Admit to CSU. This documentation was created by [employer] computer forwarding system markup clerk software. Every effort was made to ensure accuracy of computer forwarding system markup clerk. Any obvious errors or omissions should be clarified with the author of the document. Attestations Medical Necessity Statement*: Admission for more than 2 midnights for management of committee acquired pneumonia, hyponatremia requiring IV fluids from dehydration, tachycardia with suspicion of atrial fibrillation Time Spent in Patient Care: Greater than 35 minutes Coding Level of Care Code Acute [facility] Fwd Diagnoses Hypoxia R09.02 Right lower lobe pneumonia J18.9 Hyponatremia E87.1 Tachycardia R00.0 Atrial fibrillation I48.91 Breast cancer, right C50.911 Aortic stenosis I35.0 Aortic regurgitation I35.1 Hypertension I10 Hyperlipemia E78.5
--- NOTE | 2022-04-06 17:01 | USCV_ITS ---
Kojo Soledad Age: 86 Gender: F : 1935 Exam Date: 04/07/2022 04:14 Ordering Phys: Markel Alvares MD Technologist: GAGE Exam Location: [facility] Indication: CHF, history of moderate . No history of cardiac intervention per patient. BP: 136 / 93 HR: 97 Rhythm: Atrial fibrillation Technical Quality: Adequate MEASUREMENTS (Male / Female) Normal Values 2D ECHO LV Diastolic Diameter PLAX 2.9 cm 4.2 - 5.9 / 3.9 - 5.3 cm LV Systolic Diameter PLAX 1.5 cm IVS Diastolic Thickness 2.4 cm 0.6 - 1.0 / 0.6 - 0.9 cm IVS Systolic Thickness 2.8 cm LVPW Diastolic Thickness 2.1 cm 0.6 - 1.0 / 0.6 - 0.9 cm LVPW Systolic Thickness 2.5 cm LVOT Diameter 2.1 cm LV Ejection Fraction 2D Teich 79.0 % LV Ejection Fraction MOD 2C 78.2 % LV Ejection Fraction 2C AL 79.4 % LA Diameter 4.6 cm LA Width 5.0 cm LA Height 6.2 cm RA Width 3.7 cm RA Height 5.3 cm Aorta at Sinotubular Diameter 2.9 cm IVC Diameter 2.5 cm M-MODE Aortic Annulus Diameter 3.0 cm LA Ao Ratio MM 1.5 MV E Point Septal Separation 0.6 cm DOPPLER AV Peak Velocity 277.7 cm/s LVOT Peak Velocity 108.0 cm/s AV Area Cont Eq vti 1.5 cm squared AV Area Cont Eq pk 1.3 cm squared MV Peak Velocity 239.0 cm/s MV Area PHT 3.5 cm squared MV E' Velocity 114.0 cm/s Mitral E to MV E' Ratio 18.0 Mitral E to LV E' Lateral Ratio 15.2 Mitral E to LV E' Septal Ratio 22.1 TR Peak Velocity 286.5 cm/s TR Peak Gradient 32.8 mmHg TV Peak E Velocity 97.0 cm/s Right Atrial Pressure 15.0 mmHg Pulmonary Artery Systolic Pressu 47.8 mmHg PV Peak Velocity 94.0 cm/s RV Acceleration Time 0.1 s RV Ejection Time 0.4 s RV AcT/ET 0.2 FINDINGS Left Ventricle Normal left ventricular size and systolic function, EF 76 %. Moderate left ventricular hypertrophy. No regional wall motion abnormalities. Grade I/IV diastolic dysfunction (abnormal relaxation filling pattern), normal to mildly elevated filling pressures. Right Ventricle The right ventricle is normal in size and function. Right Atrium The right atrium is normal in size. Left Atrium Moderately increased left atrial size. Mitral Valve Moderate to heavy mitral annular calcification. Mild to moderate mitral regurgitation. Aortic Valve Thickened aortic valve. Mild aortic valve regurgitation. Moderate aortic valve stenosis, mean gradient 14.3 mmHg, ZENA 1.5 cm squared. Peak velocity of 2.8 m/s with a peak gradient of 31 and a mean gradient of 14 mmHg. Tricuspid Valve Mild tricuspid valve regurgitation. Pulmonic Valve Trace pulmonary valve regurgitation. Pericardium No pericardial effusion. Aorta Normal ascending aorta dimension. IVC Normal inferior vena cava. CONCLUSIONS Normal left ventricular size and systolic function, EF 76 %. Moderate left ventricular hypertrophy. No regional wall motion abnormalities. Grade I/IV diastolic dysfunction (abnormal relaxation filling pattern), normal to mildly elevated filling pressures. Thickened aortic valve. Mild aortic valve regurgitation. Moderate aortic valve stenosis, mean gradient 14.3 mmHg, ZENA 1.5 cm squared. Peak velocity of 2.8 m/s with a peak gradient of 31 and a mean gradient of 14 mmHg. Moderate left atrial enlargement. Moderate to heavy mitral annular calcification. Mild to moderate mitral regurgitation. Mild tricuspid and aortic regurgitation. There is no pericardial effusion. There are no intracardiac masses. Compared to the study from 11/05/2017, there may not be a significant change Dr Jose Jerry MD [facility] (Electronically Signed) Final Date: 07 April 2022 14:09 S
[2022-04-06] MEDS: metoprolol tartrate 1 mg/1 mL SDV 5 mL 5 MG IVP (17:46)
[2022-04-06] MEDS: famotidine 20 mg/2 mL INJ IVP (17:46)
[2022-04-06] MEDS: ferrous gluconate 324 mg Tablet PO (17:47)
[2022-04-06] MEDS: azithromycin 250 mg Tablet 500 MG PO (17:47)
[2022-04-06] MEDS: sodium chloride 0.9% 1,000 ML 75 ML IV (17:48)
[2022-04-06 17:56] LABS: Procalcitonin 0.54 ng/mL (0-0.5)
[2022-04-06 18:03] LABS: C Reactive Protein 289.9 mg/L (0.0-4.9); NT Pro B Type Natriuretic Pept 3190 pg/mL (0-450); Thyroid Stimulating Hormone 4.32 uIU/mL (0.27-4.20); Vitamin B12 1682 pg/mL (232-1245)
[2022-04-06 18:14] LABS: Iron 18 ug/dL (37-145); Percent Saturation 7.8 % (20-50); Total Iron Binding Capacity 228 mcg/dl; Unsaturated Iron Binding 210 ug/dL (112-347)
[2022-04-06 18:35] LABS: Folate Level > 20.0 ng/mL (4.8-37.3)
--- NOTE | 2022-04-06 18:40 | ECG_ITS ---
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 Measurements Intervals [place] Rate: 129 P: 113 CT: 149 QRS: -67 QRSD: 145 T: 85 QT: 317 QTc: 464 Interpretive Statements Possible SINUS TACHYCARDIA WITH OCCASIONAL VENTRICULAR PREMATURE COMPLEXES RIGHT BUNDLE BRANCH BLOCK [120+ ms QRS DURATION, UPRIGHT V1, 40+ ms S IN I/aVL/V4/V5/V6] LEFT ANTERIOR FASCICULAR BLOCK [QRS AXIS <= -45, QR IN I, RS IN II] LEFT VENTRICULAR HYPERTROPHY AND ST-T CHANGE [VOLTAGE CRITERIA PLUS ST/T ABNORMALITY] ANTEROSEPTAL MYOCARDIAL INFARCTION , PROBABLY RECENT [40+ ms Q WAVE IN V1-V4] ACUTE RI Compared to ECG 04/06/2022 15:13:16 Ventricular premature complex(es) now present Right bundle-branch block now present Short CT interval no longer present ST (T wave) deviation still present Myocardial infarct finding still present Electronically Signed On 04-07-2022 21:50:58 CDT by Jose Jerry M.D. [id number]
[2022-04-06] MEDS: labetalol 5 mg/mL SDV 20mL IVP (19:11)
[2022-04-06] MEDS: metoprolol tartrate 50 mg Tablet PO (19:13)
[2022-04-06 19:39] LABS: Troponin 5 6HR 38.51 ng/L (0-10)
[2022-04-06 19:42] LABS: Troponin 5 6HR Delta 9.51 ng/L (0-12)
[2022-04-06] MEDS: docusate sodium 100 mg Capsule PO (20:39)
[2022-04-06] MEDS: heparin 5,000 unit/mL INJ 1 mL 5000 UNIT SUBCUT (20:41)
[2022-04-06] MEDS: levalbuterol 0.63 mg/3 mL Neb INHALATION (20:43)
[2022-04-06] MEDS: budesonide 0.5 mg/2 mL Neb INHALATION (20:43)
[2022-04-06] MEDS: ipratropium 0.5 mg/2.5 mL Neb INHALATION (20:43)
[2022-04-07] VITALS (16 sets, daily range): BP systolic 101–136; BP diastolic 56–93; PULSE 91–126; RESP 13–32; TEMP 36.6–37.2; O2SAT 86–100
[2022-04-07] MEDS: ipratropium 0.5 mg/2.5 mL Neb INHALATION ×4 (02:08→20:20)
[2022-04-07] MEDS: levalbuterol 0.63 mg/3 mL Neb INHALATION ×4 (02:09→20:20)
[2022-04-07] MEDS: metoprolol tartrate 1 mg/1 mL SDV 5 mL 5 MG IVP (02:33)
[2022-04-07] MEDS: heparin 5,000 unit/mL INJ 1 mL 5000 UNIT SUBCUT ×3 (04:54→20:45)
[2022-04-07] MEDS: famotidine 20 mg/2 mL INJ IVP ×2 (04:54→17:29)
[2022-04-07 05:19] LABS: Basophils % 0.2 %; Eosinophils % 0.1 %; Hematocrit 36.9 % (37.0-47.0); Hemoglobin 11.6 g/dL (11.5-15.3); Lymphocytes # 1.4 10^3/uL (0.8-4.8); Lymphocytes % 8.5 %; Mean Corpuscular HGB Conc 31.4 g/dL (30.0-36.0); Mean Corpuscular Hemoglobin 29.4 pg (28.0-34.0); Mean Corpuscular Volume 93.4 fl (81-99); Mean Platelet Volume 11.8 fL (7.4-10.4); Monocytes # 1.8 10^3/uL (0.2-0.9); Monocytes % 10.6 %; Neutrophils # 13.35 10^3/uL (1.8-7.7); Neutrophils % 79.8 %; Nucleated Red Blood Cells % 0 %; Platelet Count 193 10^3/cmm (130-400); Red Blood Count 3.95 10^6/uL (4.1-5.3); Red Cell Distribution Width 13.2 % (12.1-15.1); White Blood Count 16.7 10^3/uL (4.0-10.0)
[2022-04-07 05:36] LABS: Alanine Aminotransferase 25 U/L (0-33); Albumin Level 2.9 g/dL (3.5-5.2); Alkaline Phosphatase 100 U/L (35-105); Anion Gap 14.2 (5-19); Aspartate Amino Transferase 33 U/L (0-32); Blood Urea Nitrogen 14 mg/dL (8-23); Calcium 8.5 mg/dL (8.5-10.5); Carbon Dioxide 23 mmol/L (22-29); Chloride 99 mmol/L (98-107); Chol HDL Ratio 2.62 mg/dL (0.0-4.40); Cholesterol 123 mg/dL (0-200); Globulin 3.3 g/dL (1.3-4.6); Glucose 136 mg/dL (65-115); HDL Cholesterol 47 mg/dL (60-100); LDL Cholesterol Calculated 55 mg/dL (50-129); Osmolality Calculated 277 mOsm/kg (285-295); Phosphorus 2.8 mg/dL (2.5-4.5); Potassium 4.2 mmol/L (3.5-5.1); Sodium 132 mmol/L (136-145); Total Bilirubin 0.2 mg/dL (0.15-1.2); Total Protein 6.2 g/dL (6.6-8.7); Triglycerides 106 mg/dL (0-150); VLDL Cholestrol Calculation 21 mg/dL (0-30)
[2022-04-07 05:46] LABS: Estmated Average Glucose 114; Hemoglobin A1C 5.6 % (4.0-6.0)
[2022-04-07] MEDS: docusate sodium 100 mg Capsule PO (08:36)
[2022-04-07] MEDS: metoprolol tartrate 50 mg Tablet PO ×2 (08:36→20:45)
[2022-04-07] MEDS: ferrous gluconate 324 mg Tablet PO ×2 (08:36→17:29)
[2022-04-07] MEDS: aspirin 81 mg Chew Tablet PO (08:36)
[2022-04-07] MEDS: budesonide 0.5 mg/2 mL Neb INHALATION ×2 (09:40→20:20)
[2022-04-07 11:04] LABS: Free T4 Free Thyroxine 1.29 ng/dL (0.82-1.77); T3 Free 1.6 PG/ML (2.0-4.4)
--- NOTE | 2022-04-07 11:47 | P.PN_ITS ---
Subjective Subjective: No acute events overnight. On examination patient sitting up in chair with family at bedside. States a lot better. On 3 L saturating 100%. States not short of breath anymore on talking though she has not walked. Denies any nausea vomiting, headache. Vitals/I&O/Wt Last Vital Signs Temp 97.8 F 04/07/22 08:00 Pulse 116 H 04/07/22 09:43 Resp 22 H 04/07/22 09:43 BP 111/57 04/07/22 08:00 Pulse Ox 98 04/07/22 09:43 O2 Del Method 04/07/22 09:43 O2 Flow Rate 3 04/07/22 09:43 04/06/22 04/07/22 04/07/22 22:59 06:59 14:59 Intake Total 2099 / 2099 240 / 240 Output Total 250 / 250 Balance 2099 / 2099 -250 / 1850 240 / 240 Weight last 48 hrs Weight 63.276 kg Weight 57.606 kg Physical Exam Narrative: EXAM NARRATIVE: General: No acute distress, AO x3, NC oxygen supplementation HEENT: PERRLA, pupils bilaterally equal and reactive Chest:Bronchial breath sounds b/l ,decreased air entry, equal good air entry bilaterally, no more fine basal crackles CVS: S1-S2 regular, no murmurs, no tachycardia, no gallops, no rubs Abdomen: Soft, nontender, no organomegaly, bowel sounds present, morbidly obese Neuro: No focal deficits, no facial deformity, AO x3, power 5/5 in all limbs Data : 04/07/22 05:02 04/07/22 05:02 Micro: Microbiology 04/06/22 21:00 Gram Stain - Final Sputum - Expectorated Sputum 04/06/22 15:20 Blood Culture - Preliminary Blood SPECIMEN COLLECTED 04/06/22 12:54 Blood Culture - Preliminary Blood SPECIMEN COLLECTED A&P Assessment and plan (1) Hypoxia: Secondary to pneumonia. Less likely from CHF. Pneumonia seen on CTA. Ruled out PE. No history of COPD. Echocardiogram results pending. Pro-Steven mildly elevated, MRSA pending. Ipratropium every 6 hour, Xopenex every 6 hour, budesonide twice daily. Oxygen supplementation keeping saturation over 90%. (2) Right lower lobe pneumonia: CT consistent with community-acquired pneumonia. Sputum culture pending. Blood cultures so far negative. Urinalysis, urine Legionella, bacterial antigen, still pending. For now empirically start on IV ceftriaxone and oral azithromycin. Will de- escalate antibiotics as per culture results. COVID-19 PCR negative. Positive for enterovirus. (3) Hyponatremia: Acute. Resolving. Chronically lives more than 135. Most likely secondary to dehydration. Stop IV fluids. Monitor BMP daily for now. (4) Tachycardia: Could be secondary dehydration. On slowing down rhythm seems to be sinus. Fibrillation ruled out. Continue with metoprolol 50 mg twice daily for now. Hold off on bisoprolol. Will uptitrate as per heart rate and blood pressures. Telemetry. (5) Atrial fibrillation: Ruled out. We will continue to monitor on telemetry. (6) Breast cancer, right: Follows up with Dr. Licona. (7) Aortic stenosis: (8) Aortic regurgitation: (9) Hypertension: Goal blood pressure less than 140/90 mmHg. Takes bisoprolol 2.5 mg daily at home. Will uptitrate medication as per goal. (10) Hyperlipemia: Plan Iron deficiency anemia. Start on oral iron supplementation. TSH mildly elevated. Check free T3, free T4. Appreciate vitamin B12, folate levels. Analgesia: Tylenol as needed. Glycemic control: Check A1c, not needed currently Nutrition: Regular diet CODE STATUS: Full code PUD prophylaxis: Famotidine for PUD prophylaxis DVT prophylaxis: Heparin 5000 every 8 hourly for DVT prophylaxis Discharge planning: Home with caregiver once medically stable. Admit to CSU. This documentation was created by [employer] cooker cleaner software. Every effort was made to ensure accuracy of cooker cleaner. Any obvious errors or omissions should be clarified with the author of the document. Attestations Medical Necessity Statement*: Requires further hospitalization for management of hypoxia secondary to COPD exacerbation from enterovirus pneumonia while bacterial infection is being ruled out, tachycardia Time Spent in Patient Care: Greater than 35 minutes Coding Level of Care Code Acute [employer] [facility] Fwd Diagnoses Hypoxia R09.02 Right lower lobe pneumonia J18.9 Hyponatremia E87.1 Tachycardia R00.0 Atrial fibrillation I48.91 Breast cancer, right C50.911 Aortic stenosis I35.0 Aortic regurgitation I35.1 Hypertension I10 Hyperlipemia E78.5
[2022-04-07] MEDS: cefTRIAXone 1,000 MG in sodium chloride 0.9% (plus) 50 ML 100 MG IV (13:22)
[2022-04-07 13:50] LABS: Add Urine Culture? No; Add Urine Microscopic? YES; Bacteria Urine 1+ /hpf; Bilirubin Urine Neg (Negative); Blood Urine 2+ (Negative); Glucose Urine UA Trace (Normal); Ketones Urine Negative (Negative); Leukocyte Esterase Urine 2+ (Negative); Nitrate Urine Negative (Negative); Protein Urine Trace (Negative); RBC Urine 0-4 /hpf (0-2); Squamous Epithelial Cell Urine 15-25 /hpf (0-5); Urine Appearance SL Hazy (CLEAR); Urine Color Yellow (Yellow); Urobilinogen Urine Norm (Negative); WBC Urine >100 /hpf (0-5); pH Urine 5 (5-7)
[2022-04-07 13:58] LABS: Potassium, Radom Urine 49 mmol/L; Urine Random Chloride 57 mmol/L
[2022-04-07 14:00] LABS: Urine Random Sodium 16 mmol/L
--- NOTE | 2022-04-07 14:06 | PC.NURSE ---
assisted to restroom.heart rate increased to 120's with activity.bp 90/58 (manual).pt denied dizziness or sob.dr cheatham notified.he ordered 500 cc ns bolus
[2022-04-07] MEDS: sodium chloride 0.9% 500 ML 999 ML IV (14:13)
[2022-04-07] MEDS: azithromycin 250 mg Tablet 500 MG PO (17:29)
[2022-04-08] VITALS (18 sets, daily range): BP systolic 126–180; BP diastolic 60–101; PULSE 72–132; RESP 13–18; TEMP 36.7–36.8; O2SAT 91–98
--- NOTE | 2022-04-08 01:28 | PC.RESP ---
attempted to give pt 0200 scheduled breathing treatments, however she stated that the treatments have been making her nauseous and anxious. txs held per pt request
[2022-04-08 01:56] LABS: Basophils # 0.1 10^3/uL (0.0-0.1); Basophils % 0.4 %; Eosinophils # 0.1 10^3/uL (0.0-0.8); Eosinophils % 0.8 %; Hemoglobin 10.8 g/dL (11.5-15.3); Lymphocytes # 1.4 10^3/uL (0.8-4.8); Lymphocytes % 10.2 %; Mean Corpuscular HGB Conc 30.9 g/dL (30.0-36.0); Mean Corpuscular Hemoglobin 29.8 pg (28.0-34.0); Mean Corpuscular Volume 96.7 fl (81-99); Mean Platelet Volume 11.4 fL (7.4-10.4); Monocytes # 1.5 10^3/uL (0.2-0.9); Monocytes % 10.8 %; Neutrophils # 10.75 10^3/uL (1.8-7.7); Nucleated Red Blood Cells % 0 %; Platelet Count 189 10^3/cmm (130-400); Red Blood Count 3.62 10^6/uL (4.1-5.3); Red Cell Distribution Width 13.2 % (12.1-15.1); White Blood Count 13.9 10^3/uL (4.0-10.0)
[2022-04-08] MEDS: metoprolol tartrate 1 mg/1 mL SDV 5 mL 5 MG IVP ×2 (02:41→06:46)
[2022-04-08 02:43] LABS: Alanine Aminotransferase 33 U/L (0-33); Albumin Level 2.3 g/dL (3.5-5.2); Alkaline Phosphatase 109 U/L (35-105); Blood Urea Nitrogen 9 mg/dL (8-23); Calcium 8.1 mg/dL (8.5-10.5); Carbon Dioxide 18 mmol/L (22-29); Chloride 97 mmol/L (98-107); Globulin 3.3 g/dL (1.3-4.6); Glucose 126 mg/dL (65-115); Osmolality Calculated 264 mOsm/kg (285-295); Sodium 127 mmol/L (136-145); Total Bilirubin 0.2 mg/dL (0.15-1.2); Total Protein 5.6 g/dL (6.6-8.7)
[2022-04-08 02:48] LABS: Anion Gap 16.1 (5-19); Aspartate Amino Transferase 53 U/L (0-32); Potassium 4.1 mmol/L (3.5-5.1)
[2022-04-08] MEDS: famotidine 20 mg/2 mL INJ IVP ×2 (04:54→19:06)
[2022-04-08] MEDS: heparin 5,000 unit/mL INJ 1 mL 5000 UNIT SUBCUT ×3 (04:54→19:55)
--- NOTE | 2022-04-08 08:55 | PC.CHAP ---
Pastoral Care Encounter/Spiritual Assessment Type of Contact [] Declined lead manufacturing engineer visit [] Patient/Family/Request visit [] Outpatient visit [] Follow-up visit [] Physician referral [] Code/Alert [x] Routine visit [] Staff referral [] Actively dying [] Patient sleeping [] Family support [] [] Out of room [] Palliative care [] [] Receiving care in room [] Pre-surgical visit [] Trauma [] Long length of stay [] ICU visit [] Other: Relational/Emotional Strength [x] Patient feels connected with others/family/visitors/staff [] Distress [] Loneliness/isolation [] Abandonment Spirituality of Patient [x] Person of Jannette [x] Attends Quaker of their Jannette [x] Believes in Prayer [x] Reads Bible or Tenriism materials [] There are Spiritual issues to be addressed Barber Or Beauty Shop Manager Interventions [x] Prayer [x] Active listening [x] Non-anxious presence [x] Spiritual/emotional support [] Crisis/trauma care [] Spiritual counseling [] Bereavement support [] Provided bereavement packet [] Provided Bible/devotional materials [] Provided toy/stuffed animal, coloring book to patient or family member [] Provided Communion [] Anointing/[place] [] Salvation [x] Completed spiritual assessment [] Other: Impact on Illness or Injury [] Angry [] Fearful [] Anxious [] Often cries [] Exhaustion [] Unable to work [] Unable to attend christian [] Unable to walk/stand [] Unable to read [] Unable to drive [] Unable to eat/drink [] Unable to sleep [] Unable to be with family [] Patient intubated [] Other: Summary Pt lives in but lived in [place] for many years. Attends [employer] [facility] and attended the same in [place]. Pt knows Barber Or Beauty Shop Manager's family in the area. Pt is anxious to get home, feels she has too much to do to remain in hospital. is visiting her while she is here. Time spent with patient 15m
[2022-04-08] MEDS: metoprolol tartrate 50 mg Tablet PO ×2 (10:28→19:55)
[2022-04-08] MEDS: aspirin 81 mg Chew Tablet PO (10:28)
[2022-04-08] MEDS: ferrous gluconate 324 mg Tablet PO ×2 (10:28→19:06)
--- NOTE | 2022-04-08 10:37 | ECG_ITS ---
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 Measurements Intervals [place] Rate: 117 P: 254 ND: 205 QRS: -61 QRSD: 125 T: 80 QT: 323 QTc: 451 Interpretive Statements Possible SINUS TACHYCARDIA LEFT ANTERIOR FASCICULAR BLOCK [QRS AXIS <= -45, QR IN I, RS IN II] LEFT VENTRICULAR HYPERTROPHY AND ST-T CHANGE POSSIBLE ANTEROSEPTAL MYOCARDIAL INFARCTION , OF INDETERMINATE AGE Compared to ECG 04/06/2022 18:28:44 Right bundle-branch block no longer present ST (T wave) deviation still present Myocardial infarct finding still present Electronically Signed On 04-08-2022 17:23:05 CDT by Cristal Ventura M.D. [id number]
[2022-04-08] MEDS: dilTIAZem 5 mg/mL SDV 5 mL 10 MG IVP (11:05)
[2022-04-08] MEDS: cefTRIAXone 1,000 MG in sodium chloride 0.9% (plus) 50 ML 100 MG IV (13:14)
--- NOTE | 2022-04-08 13:55 | P.PN_ITS ---
Subjective Subjective: No acute events overnight. Denies any nausea, vomiting, headache. Family at bedside. Turned down to room air. States feeling better. Sitting up in chair. Heart rate continues to remain more than 100s. Patient denies of having any dizziness but complained of feeling slight palpitations. Heart rate turned down to 90s with IV Cardizem 10. Remains in sinus rhythm. Vitals/I&O/Wt Last Vital Signs Temp 98.2 F 04/08/22 12:00 Pulse 95 04/08/22 13:38 Resp 18 04/08/22 12:06 BP 132/66 04/08/22 12:00 Pulse Ox 95 04/08/22 12:06 O2 Del Method 04/08/22 12:06 O2 Flow Rate 2 04/08/22 08:20 04/07/22 04/08/22 04/08/22 22:59 06:59 14:59 Intake Total 860 / 1150 200 / 1350 720 / 720 Output Total 0 / 550 0 / 0 Balance 860 / 600 200 / 800 720 / 720 Weight last 48 hrs Weight 66.678 kg Weight 63.276 kg Physical Exam Narrative: EXAM NARRATIVE: General: No acute distress, AO x3, NC oxygen supplementation HEENT: PERRLA, pupils bilaterally equal and reactive Chest:Bronchial breath sounds b/l ,decreased air entry, equal good air entry bilaterally, no more fine basal crackles CVS: S1-S2 regular, no murmurs, no tachycardia, no gallops, no rubs Abdomen: Soft, nontender, no organomegaly, bowel sounds present, morbidly obese Neuro: No focal deficits, no facial deformity, AO x3, power 5/5 in all limbs Data : 04/08/22 01:30 04/08/22 01:30 Micro: Microbiology 04/06/22 21:00 Gram Stain - Final Sputum - Expectorated Sputum Sputum Culture - Preliminary 04/07/22 13:00 Bacterial Antigens - Final Urine Kidney 04/06/22 15:20 Blood Culture - Preliminary Blood NEGATIVE TO DATE 04/07/22 00:59 MRSA Culture - Final Nose 04/07/22 13:00 Legionella Urinary Antigen - Final Urine,Voided 04/06/22 12:54 Blood Culture - Preliminary Blood NEGATIVE TO DATE A&P Assessment and plan (1) Hypoxia: Secondary to pneumonia. Less likely from CHF. Pneumonia seen on CTA. Ruled out PE. No history of COPD. Echocardiogram shows LVEF of 76%, grade 1 diastolic dysfunction, moderate aortic valve stenosis, moderate left atrial enlargement, mild to moderate. Pro-Steven mildly elevated, MRSA pending. Given tachycardia for now we will stop ipratropium every 6 hour, Xopenex every 6 hour. Switch to Spiriva, continue with budesonide Oxygen supplementation keeping saturation over 90%. (2) Right lower lobe pneumonia: CT consistent with community-acquired pneumonia. Sputum culture pending. Blood cultures so far negative. Urine Legionella, bacterial antigen, negative. Urinalysis appreciated. Patient denies of having any dysuria. For now empirically start on IV ceftriaxone and oral azithromycin. Will de- escalate antibiotics as per culture results. COVID-19 PCR negative. Positive for enterovirus. (3) Hyponatremia: Acute. Resolving. Chronically lives more than 135. Most likely secondary to dehydration. Stop IV fluids. Monitor BMP daily for now. (4) Tachycardia: Could be secondary dehydration. On slowing down rhythm seems to be sinus. Fibrillation ruled out. Continue with metoprolol 50 mg twice daily. Start on Cardizem 30 mg oral 3 times daily. We will continue to monitor. Stop bisoprolol. Telemetry. (5) Atrial fibrillation: Ruled out. We will continue to monitor on telemetry. (6) Breast cancer, right: Follows up with Dr. Licona. (7) Aortic stenosis: (8) Aortic regurgitation: (9) Hypertension: Goal blood pressure less than 140/90 mmHg. Takes bisoprolol 2.5 mg daily at home. Medication switched as above. Continue to monitor and uptitrate accordingly. (10) Hyperlipemia: Plan Iron deficiency anemia. Start on oral iron supplementation. TSH mildly elevated. Free T3 mildly low, free T4 normal. Appreciate vitamin B12, folate levels. Analgesia: Tylenol as needed. Glycemic control: Check A1c, not needed currently Nutrition: Regular diet CODE STATUS: Full code PUD prophylaxis: Famotidine for PUD prophylaxis DVT prophylaxis: Heparin 5000 every 8 hourly for DVT prophylaxis Discharge planning: Home with caregiver once medically stable. Continue care at CSU level. This documentation was created by [email or web address] calendering supervisor software. Every effort was made to ensure accuracy of calendering supervisor. Any obvious errors or omissions should be clarified with the author of the document. Attestations Medical Necessity Statement*: Requires further hospitalization for management of hypoxia secondary to pneumonia, enteroviral infection, hyponatremia Time Spent in Patient Care: 16 - 35 minutes Coding Level of Care Code Acute Fence Installer Foreman for Chg Fwd Diagnoses Hypoxia R09.02 Right lower lobe pneumonia J18.9 Hyponatremia E87.1 Tachycardia R00.0 Atrial fibrillation I48.91 Breast cancer, right C50.911 Aortic stenosis I35.0 Aortic regurgitation I35.1 Hypertension I10 Hyperlipemia E78.5
[2022-04-08] MEDS: dilTIAZem 30 mg Tablet PO ×2 (15:55→19:55)
--- NOTE | 2022-04-08 16:49 | ECG_ITS ---
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 Measurements Intervals [place] Rate: 98 P: 80 DE: 189 QRS: -59 QRSD: 129 T: 79 QT: 353 QTc: 451 Interpretive Statements SINUS RHYTHM WITH OCCASIONAL VENTRICULAR PREMATURE COMPLEXES LEFT ANTERIOR FASCICULAR BLOCK [QRS AXIS <= -45, QR IN I, RS IN II] LEFT VENTRICULAR HYPERTROPHY AND ST-T CHANGE [VOLTAGE CRITERIA PLUS ST/T ABNORMALITY] POSSIBLE SEPTAL MYOCARDIAL INFARCTION , PROBABLY RECENT Compared to ECG 04/08/2022 13:29:46 Ventricular premature complex(es) now present ST (T wave) deviation still present Myocardial infarct finding still present Electronically Signed On 04-09-2022 5:27:36 CDT by Cristal Ventura M.D. [id number]
[2022-04-08] MEDS: azithromycin 250 mg Tablet 500 MG PO (19:06)
[2022-04-08 19:47] LABS: Magnesium 1.8 mg/dL (1.7-2.3); NT Pro B Type Natriuretic Pept 5420 pg/mL (0-450)
[2022-04-09] VITALS (8 sets, daily range): BP systolic 145–163; BP diastolic 63–97; PULSE 83–117; RESP 12–20; TEMP 36.7–37; O2SAT 91–94
[2022-04-09 03:19] LABS: Alanine Aminotransferase 32 U/L (0-33); Albumin Level 2.6 g/dL (3.5-5.2); Alkaline Phosphatase 104 U/L (35-105); Anion Gap 13.4 (5-19); Aspartate Amino Transferase 35 U/L (0-32); Blood Urea Nitrogen 6 mg/dL (8-23); Calcium 8.3 mg/dL (8.5-10.5); Carbon Dioxide 24 mmol/L (22-29); Chloride 94 mmol/L (98-107); Globulin 3.1 g/dL (1.3-4.6); Glucose 122 mg/dL (65-115); Osmolality Calculated 265 mOsm/kg (285-295); Potassium 3.4 mmol/L (3.5-5.1); Sodium 128 mmol/L (136-145); Total Bilirubin 0.3 mg/dL (0.15-1.2); Total Protein 5.7 g/dL (6.6-8.7)
[2022-04-09 03:36] LABS: Creatinine Clr Calc Pharmacy 43.2912
[2022-04-09] MEDS: famotidine 20 mg/2 mL INJ IVP (04:47)
[2022-04-09] MEDS: heparin 5,000 unit/mL INJ 1 mL 5000 UNIT SUBCUT (04:47)
[2022-04-09] MEDS: aspirin 81 mg Chew Tablet PO (09:13)
[2022-04-09] MEDS: dilTIAZem 30 mg Tablet PO (09:13)
[2022-04-09] MEDS: metoprolol tartrate 50 mg Tablet PO ×2 (09:13→10:11)
[2022-04-09] MEDS: ferrous gluconate 324 mg Tablet PO (09:14)
--- NOTE | 2022-04-09 10:49 | PC.SOCIAL ---
IMM update IMM Updated with patient. Verbalized an understanding. Copy Pg 2 provided. Initialled, dated, timed, and placed in chart.
--- NOTE | 2022-04-09 11:30 | P.DS_ITS ---
Discharge Providers Date of Admission: 04/06/22 16:45 Date of Discharge: April 09, 2022 Attending Provider at Admission: Markel Alvares MD Attending Provider at Discharge: Markel Alvares MD Primary Care Provider: Liu Clancy MD Diagnoses at Discharge Discharge Diagnosis (1) Hypoxia: Status: Acute (2) Right lower lobe pneumonia: Status: Acute (3) Hyponatremia: Status: Acute (4) Tachycardia: Status: Acute (5) Atrial fibrillation: Status: Ruled-out (6) Breast cancer, right: Status: Acute Permanent problem details: Grade 2 infiltrating ductal carcinoma of the right breast, stage IA (T1c, N0, M0), ER/MS positive and HER-2/katie negative. (7) Aortic stenosis: Status: Acute Permanent problem details: Echo in 11/2017 showed moderate aortic stenosis. (8) Aortic regurgitation: Status: Acute Permanent problem details: Echo in 2014 had reported mild to moderate aortic regurgitation. Echo on 11/05/2017 indicated worsening aortic insufficiency now to a moderate degree. (9) Hypertension: Status: Acute (10) Hyperlipemia: Status: Acute Reason for Visit Reason for Visit: SOB, congestion Hospital Course Hospital Course Soledad Varma is a 86 year old female with past medical history of aortic stenosis/aortic regurgitation, diastolic heart failure, breast cancer for which she follows up with Dr. Licona who presents to the ER today because of difficulty in breathing which has been getting worse since last .? Today is Wednesday.? She states she has been having more difficulty breathing getting worse along with cough and expectoration.? She has been using her inhalers regularly but has not helped.? She is also complaining of slight palpitations.? Denies any nausea vomiting, headache.? Complaining of mild diarrhea on and off.? States oral intake is decreased as well. Patient was admitted to hospital further evaluation and management of hypoxia secondary to lower lobe pneumonia. Respiratory viral panel came back positive for enterovirus. She started on broad-spectrum antibiotics empirically for right lower lobe pneumonia. She responded well to the treatment. On admission she was hyponatremic most likely secondary to dehydration which resolved with IV fluids. Her hospitalization was otherwise unremarkable and she is back to room air for last 24 hours. During hospitalization she was found to have persistent tachycardia for which other organic causes were ruled out. Her home dose of bisoprolol was switched to metoprolol. Her care was discussed in detail with cardiology on-call who suggested patient to be discharged on metoprolol and advised to follow-up in 2 weeks with cardiology services in the office once acute illness has resolved for further work-up and evaluation of tachycardia if needed. Physical Exam Narrative: EXAM NARRATIVE: General: No acute distress, AO x3, on RA HEENT: PERRLA, pupils bilaterally equal and reactive Chest:Bronchial breath sounds b/l ,decreased air entry, equal good air entry bilaterally, no more fine basal crackles CVS: S1-S2 regular, no murmurs, no tachycardia, no gallops, no rubs Abdomen: Soft, nontender, no organomegaly, bowel sounds present, morbidly obese Neuro: No focal deficits, no facial deformity, AO x3, power 5/5 in all limbs Discharge Data Studies Completed and Pending Completed Studies During Hospitalization Category Date Time Status CTA chest [CT angio chest PE protcl 69712] Stat Cat Scan 04/06/22 13:56 Completed XR chest 2V* [id number] Stat Exams 04/06/22 12:14 Completed CV. echo complete* [id number] Routine Ultrasound 04/06/22 17:01 Completed Pending at discharge Category Date Time Status Blood Culture Stat Lab 04/06/22 15:20 Results Radiology Impressions Chest X-Ray 04/06/22 12:14 IMPRESSION: Coarse chronic pulmonary markings with increased ground-glass and and irregular areas of consolidation in the right lower lobe is nonspecific but may represent pneumonia. Chest CTA 04/06/22 13:56 IMPRESSION: 1. No evidence of pulmonary embolus. 2. Diffuse tissue thickening about the RIGHT hilum and infrahilum nonspecific but suspicious for neoplasm. This can be further evaluated with bronchoscopy. Recommend Pulmonary consult. 3. Subsegmental atelectasis involving the RIGHT middle lobe with opacification of the RIGHT bronchus intermedius 4. Precarinal and subcarinal lymphadenopathy. RIGHT hilar lymphadenopathy. 5. Coarse fibrotic appearing infiltrates throughout the RIGHT lung and LEFT lower lobe. Recommend correlation for pneumonia. Attempted notification Mauricio Meier DO at 04/06/2022 3:00 PM. Echocardiogram: CONCLUSIONS ?Normal left ventricular size and systolic function, EF 76 %. ?Moderate left ventricular hypertrophy. No regional wall motion ?abnormalities. Grade I/IV diastolic dysfunction (abnormal ?relaxation filling pattern), normal to mildly elevated filling ?pressures. ?Thickened aortic valve. Mild aortic valve regurgitation. ?Moderate aortic valve stenosis, mean gradient 14.3 mmHg, ZENA 1.5 ?cm squared.? Peak velocity of 2.8 m/s with a peak gradient of 31 and a ?mean gradient of 14 mmHg. ?Moderate left atrial enlargement. ?Moderate to heavy mitral annular calcification.? Mild to ?moderate mitral regurgitation. ?Mild tricuspid and aortic regurgitation. ?There is no pericardial effusion. ?There are no intracardiac masses. ?Compared to the study from 11/05/2017, there may not be a ?significant change ?Dr Jose Jerry MD [facility] ?(Electronically Signed) ?Final Date:? ? ? 07 April 2022 ? 14:09 Laboratory Results WBC 13.9 10^3/uL (4.0-10.0) H 04/08/22 01:30 RBC 3.62 10^6/uL (4.1-5.3) L 04/08/22 01:30 Hgb 10.8 g/dL (11.5-15.3) L 04/08/22 01:30 Hct 35.0 % (37.0-47.0) L 04/08/22 01:30 MCV 96.7 fl (81-99) 04/08/22 01:30 MCH 29.8 pg (28.0-34.0) 04/08/22 01:30 MCHC 30.9 g/dL (30.0-36.0) 04/08/22 01:30 RDW 13.2 % (12.1-15.1) 04/08/22 01:30 Plt Count 189 10^3/cmm (130-400) 04/08/22 01:30 MPV 11.4 fL (7.4-10.4) H 04/08/22 01:30 Neut % (Auto) 77.0 % 04/08/22 01:30 Lymph % (Auto) 10.2 % 04/08/22 01:30 [place] % (Auto) 10.8 % 04/08/22 01:30 Eos % (Auto) 0.8 % 04/08/22 01:30 Baso % (Auto) 0.4 % 04/08/22 01:30 Neut # (Auto) 10.75 10^3/uL (1.8-7.7) H 04/08/22 01:30 Lymph # (Auto) 1.4 10^3/uL (0.8-4.8) 04/08/22 01:30 [place] # (Auto) 1.5 10^3/uL (0.2-0.9) H 04/08/22 01:30 Eos # (Auto) 0.1 10^3/uL (0.0-0.8) 04/08/22 01:30 Baso # (Auto) 0.1 10^3/uL (0.0-0.1) 04/08/22 01:30 Nucleated RBC % (auto) 0 % 04/08/22 01:30 Nucleated RBCs # 0.0 /100WBC 04/08/22 01:30 D-Dimer 2.59 ug/mIFEU (0-0.59) H 04/06/22 12:54 Specimen Type Arterial 04/06/22 15:37 Sample Site Radial, right 04/06/22 15:37 ABG pH 7.41 (7.35-7.45) 04/06/22 15:37 ABG pCO2 37.5 mmHg (35-45) 04/06/22 15:37 ABG pO2 92.4 mmHg (80.0-100.0) 04/06/22 15:37 ABG HCO3 23.6 mmol/L (22-26) 04/06/22 15:37 ABG O2 Saturation 98.3 04/06/22 15:37 ABG Base Excess -0.9 mmol/L (-2.0-2.0) 04/06/22 15:37 Sina Test Pos 04/06/22 15:37 A-a O2 Gradient 1.2 mmHg (5-10) L 04/06/22 15:37 Hematocrit 37.7 % (37-47) 04/06/22 15:37 Hgb O2 Saturation 96.5 % (95-100) 04/06/22 15:37 Carboxyhemoglobin 1.3 %THgb (0.4-20.1) 04/06/22 15:37 Methemoglobin 0.6 % (0.4-1.5) 04/06/22 15:37 Total Hemoglobin 12.3 g/dL (12-16) 04/06/22 15:37 Sodium 127.0 mmol/L (131-143) L 04/06/22 15:37 Potassium 3.8 mmol/L (3.5-5.0) 04/06/22 15:37 Glucose 99.0 mg/dL (70-115) 04/06/22 15:37 Ionized Calcium 1.1 mmol/L (1.1-1.4) 04/06/22 15:37 O2 Delivery Device Nc 04/06/22 15:37 Central Office Repairer Supervisor ID Clarro 04/06/22 15:37 Sodium 128 mmol/L (136-145) L 04/09/22 02:29 Potassium 3.4 mmol/L (3.5-5.1) L 04/09/22 02:29 Chloride 94 mmol/L (98-107) L 04/09/22 02:29 Carbon Dioxide 24 mmol/L (22-29) 04/09/22 02:29 Anion Gap 13.4 (5-19) 04/09/22 02:29 BUN 6 mg/dL (8-23) L 04/09/22 02:29 Creatinine 0.3 mg/dL (0.5-0.9) L 04/09/22 02:29 GFR Calculation Not Reportable 04/09/22 02:29 Glucose 122 mg/dL (65-115) H 04/09/22 02:29 Estimat Average Glucose 114 04/07/22 05:02 Hemoglobin A1c 5.6 % (4.0-6.0) 04/07/22 05:02 Calculated Osmolality 265 mOsm/kg (285-295) L 04/09/22 02:29 Lactate 1.9 mmol/L (0.5-2.2) 04/06/22 12:54 Calcium 8.3 mg/dL (8.5-10.5) L 04/09/22 02:29 Phosphorus 2.8 mg/dL (2.5-4.5) 04/07/22 05:02 Magnesium 1.8 mg/dL (1.7-2.3) 04/08/22 01:30 Iron 18 ug/dL (37-145) L 04/06/22 12:54 TIBC 228 mcg/dl 04/06/22 12:54 % Saturation 7.8 % (20-50) L 04/06/22 12:54 Unsat Iron Binding 210 ug/dL (112-347) 04/06/22 12:54 Total Bilirubin 0.3 mg/dL (0.15-1.2) 04/09/22 02:29 AST 35 U/L (0-32) H 04/09/22 02:29 ALT 32 U/L (0-33) 04/09/22 02:29 Alkaline Phosphatase 104 U/L (35-105) 04/09/22 02:29 Troponin T Baseline 29 ng/L (0-10) H 04/06/22 12:54 Troponin T 120 Minute 25.43 ng/L (0-10) H 04/06/22 15:20 Delta Troponin T -3.57 ABS# (0-10) L 04/06/22 15:20 Troponin T Hi Sens 6Hr 38.51 ng/L (0-10) H 04/06/22 19:15 Troponin T Hi Sens 6Hr Delta 9.51 ng/L (0-12) 04/06/22 19:15 C-Reactive Protein 289.9 mg/L (0.0-4.9) H 04/06/22 12:54 NT-Pro-B Natriuret Pep 5420 pg/mL (0-450) H 04/08/22 01:30 Total Protein 5.7 g/dL (6.6-8.7) L 04/09/22 02:29 Albumin 2.6 g/dL (3.5-5.2) L 04/09/22 02:29 Globulin 3.1 g/dL (1.3-4.6) 04/09/22 02:29 Triglycerides 106 mg/dL (0-150) 04/07/22 05:02 Cholesterol 123 mg/dL (0-200) 04/07/22 05:02 LDL Cholesterol, Calc 55 mg/dL (50-129) 04/07/22 05:02 Total VLDL Cholesterol 21 mg/dL (0-30) 04/07/22 05:02 HDL Cholesterol 47 mg/dL (60-100) L 04/07/22 05:02 Cholesterol/HDL Ratio 2.62 mg/dL (0.0-4.40) 04/07/22 05:02 Vitamin B12 1682 pg/mL (232-1245) H 04/06/22 12:54 Folate > 20.0 ng/mL (4.8-37.3) 04/06/22 12:54 Procalcitonin 0.54 ng/mL (0-0.5) H 04/06/22 12:54 TSH 4.32 uIU/mL (0.27-4.20) H 04/06/22 12:54 Free T4 1.29 ng/dL (0.82-1.77) 04/07/22 05:02 Free T3 1.6 PG/ML (2.0-4.4) L 04/07/22 05:02 Urine Color Yellow (Yellow) 04/07/22 13:00 Urine Appearance Sl hazy (CLEAR) A 04/07/22 13:00 Urine pH 5 (5-7) 04/07/22 13:00 Ur Specific [place] 1.020 (1.005-1.030) 04/07/22 13:00 Urine Protein Trace (Negative) 04/07/22 13:00 Urine Glucose (UA) Trace (Normal) H 04/07/22 13:00 Urine Ketones Negative (Negative) 04/07/22 13:00 Urine Blood 2+ (Negative) H 04/07/22 13:00 Urine Nitrate Negative (Negative) 04/07/22 13:00 Urine Bilirubin Neg (Negative) 04/07/22 13:00 Urine Urobilinogen Norm mg/dL (Negative) 04/07/22 13:00 Ur Leukocyte Esterase 2+ (Negative) H 04/07/22 13:00 Urine RBC 0-4 /hpf (0-2) H 04/07/22 13:00 Urine WBC >100 /hpf (0-5) H 04/07/22 13:00 Ur Squamous Epith Cells 15-25 /hpf (0-5) H 04/07/22 13:00 Amorphous Sediment Not Reportable 04/07/22 13:00 Urine Bacteria 1+ /hpf (NONE) H 04/07/22 13:00 Ur Random Sodium 16 mmol/L 04/07/22 13:00 Ur Random Potassium 49 mmol/L 04/07/22 13:00 Ur Random Chloride 57 mmol/L 04/07/22 13:00 Coronavirus 229E (PCR) Not detected (NOT DETECT) 04/06/22 13:49 Human Metapneumovir PCR Not detected (NOT DETECT) 04/06/22 15:45 Entero/Rhino (PCR) Detected (NOT DETECT) A 04/06/22 15:45 SARS-CoV-2 (PCR) Not detected (NOT DETECT) 04/06/22 13:49 Vitals Last Vital Signs Temp 98.2 F 04/09/22 11:27 Pulse 83 04/09/22 11:27 Resp 16 04/09/22 11:27 BP 145/63 04/09/22 11:27 Pulse Ox 93 04/09/22 11:27 O2 Del Method 04/09/22 11:27 O2 Flow Rate 2 04/08/22 08:20 Discharge Plan Discharge Patient Disposition: Home Condition: Stable Prescriptions: New amoxicillin-pot clavulanate [Augmentin] 500-125 mg tablet 1 tab PO BID 3 Days Qty: 6 0RF ferrous gluconate 324 mg (37.5 mg iron) Tablet 324 mg PO BIDWM Qty: 60 0RF Spiriva with HandiHaler 18 mcg Capsule, W/Inhalation Device 18 mcg inhalation DAILY.RESPIRATORY 30 Days Qty: 30 0RF metoprolol tartrate 50 mg Tablet 100 mg PO BID@0900,2100 30 Days Qty: 120 0RF levofloxacin 500 mg tablet 500 mg PO Q24H 3 Days Qty: 3 0RF Continued aspirin [Tigre Chewable Aspirin] 81 mg tablet,chewable 81 mg PO DAILY calcium carbonate-vitamin D3 [Calcium 600 with Vitamin D3] 600 mg(1,500mg) - 500 unit capsule 1 cap PO DAILY cetirizine [All Day Allergy (cetirizine)] 10 mg tablet 10 mg PO DAILY cyclobenzaprine 10 mg tablet 10 mg PO BEDTIME fluticasone furoate 27.5 mcg/actuation spray,suspension 2 spray INTRANASAL DAILY Rx Instructions: into each nostril garlic 1,000 mg capsule 1,000 mg PO DAILY multivitamin Tablet 1 tab PO DAILY niacin 100 mg tablet 100 mg PO DAILY omega-3 fatty acids 1,000 mg capsule 1,000 mg PO DAILY Probiotic 5 billion cell Capsule, Sprinkle 1 cap PO DAILY Discontinued bisoprolol fumarate 5 mg tablet 2.5 mg PO DAILY doxycycline hyclate 100 mg tablet 100 mg PO BID Discharge Orders: Discharge Order (Routine); Ordered 04/09/22 Ordered By: Markel Alvares Referrals: Liu Clancy MD [Primary Care Provider] - 1 week Cristal Ventura MD [Physician] - 2 weeks Timothy Chung MD [Physician] - 1 month Discharge Diet: Cardiac Discharge Activity: Resume usual activity and Increase activity as tolerated Patient Instructions: Opioid Safety Activity Restrictions/Additional Instructions: Please follow-up with your primary care provider within next 1 week and with supervisor rubber covering the next 2 weeks. Do not take bisoprolol anymore. Instead take metoprolol 100 mg morning and evening. You will be on 2 antibiotics Augmentin and Levaquin for next 3 days. Spiriva inhaler which you should take for next 1 week and after that as needed daily. Please monitor your blood pressure daily at home and maintain a blood pressure diary. Please have a blood pressure diary when you following up with your primary care provider and supervisor rubber covering. Patient should have a repeat CT scan of the chest done within the next 1 month for further evaluation and monitoring of lymphadenopathy prior to work-up with pulmonology. Discharge Attestations Time Spent in Discharge Care*: greater than 30 min Specific Discharge Activities: educating patient, educating and/or supporting family/caregiver, discussing with pcp/other providers, discussing with binder caser/social workers/dc planners, documenting/other paperwork and evaluating patient/reviewing data Status at Discharge: Cognitive status at discharge: cognitively intact , Behavioral status at discharge: cooperative , Functional status at discharge: independent ambulation , Overall status at discharge: patient is back to baseline Quality Metrics Clinical Quality Measures [ No reported AMI, CVA or VTE this stay] Coding Level of Care Code Acute Chg DC note Diagnoses Hypoxia R09.02 Right lower lobe pneumonia J18.9 Hyponatremia E87.1 Tachycardia R00.0 Atrial fibrillation I48.91 Breast cancer, right C50.911 Aortic stenosis I35.0 Aortic regurgitation I35.1 Hypertension I10 Hyperlipemia E78.5
--- NOTE | 2022-04-09 12:44 | PC.NURSE ---
discharge instructions given and explained to pt and daughter.both verb understanding of instructions.discharged via w/c to exit.daughter to drive pt home
--- NOTE | 2022-04-09 15:04 | PC.NURSE ---
Addendum: this patient had a 13 beat run of Vtach yesterday. Dr Alvares was notified immediately. He ordered an EKG and mag and BNP stat which were completed. Picture of Vtach sent to Dia and posted in chart.
== END 2022-04-09 12:50 | disposition home or self-care (01) | DRG 194 ==
LOC: ER 17:42 → MEDSURG 19:31
PROVIDERS: Admitting Provider Student in an Organized Health Care Education/Training Program; Emergency Provider Emergency Medicine; PCP Family Medicine; Visit Provider Student in an Organized Health Care Education/Training Program
DX: J12.9 Viral pneumonia, unspecified (principal); E87.1 Hypo-osmolality and hyponatremia; R09.02 Hypoxemia; R00.0 Tachycardia, unspecified; E78.5 Hyperlipidemia, unspecified; I35.1 Nonrheumatic aortic (valve) insufficiency; I35.0 Nonrheumatic aortic (valve) stenosis; C50.911 Malignant neoplasm of unspecified site of right female breast; I11.0 Hypertensive heart disease with heart failure; D50.9 Iron deficiency anemia, unspecified; B97.10 Unspecified enterovirus as the cause of diseases classified elsewhere
CPT/HCPCS: 36415; 36600; 71046; 71275; 80051; 80053; 80061; 81001; 82330; 82436; 82607; 82746; 82805; 83036; 83540; 83550; 83605; 83735; 83880; 84100; 84133; 84145; 84300; 84439; 84443; 84481; 84484; 85025; 85378; 86140; 86403; 87040; 87070; 87205; 87449; 87635; 87641; 87801; 93005; 93306; 94640; 94664; 94760; 96365; 96372; 99285; J0696; J1644; J3490; J7030; J7040; J7614; J7626; J7644; Q0144; Q9967

== ENCOUNTER 2022-06-17 11:01 | Outpatient (CLI) | payer MEDICARE, OTHER, SELFPAY ==
--- NOTE | 2022-06-17 14:30 | CT_ITS ---
WS: [id number] CT CHEST INTRAVENOUS CONTRAST HISTORY: f/u pneumonia TECHNIQUE: Contiguous 5 mm axial imaging performed on the thorax. Coronal and sagittal reformats are submitted. All CT scans at [facility] use at least one of these dose optimization techniques: automated exposure control; mA and/or kV adjustment per patient size (includes targeted exams where dose is matched to clinical indication); or iterative reconstruction. CONTRAST: None DLP: 222.11 mGy.cm COMPARISON: 04/06/2022 Lungs and central airway: Marked pulmonary hyperinflation with changes of emphysema. Moderate improve ment in the scattered opacifications throughout both lungs. Most significant improvement in the RIGHT upper lobe opacification abutting the fissure. The irregular opacifications in the RIGHT lower lobe have also improved. There is a new wedge-shaped pleural-based nodule with central cavitation measurin g 2.3 x 1.6 cm in the LEFT lower lobe. Pleura: Mild pleural thickening. No effusion. Heart and pericardium: Marked enlargement of the heart. Dense calcification along the mitral annular valve plane. Heavy coronary artery calcification. Mediastinum and robi: Previously described mediastinal and hilar confluent lymphadenopathy is very di fficult to accurately described on today's examination without IV contrast in the vessels. There does appear to be a slight improvement in the overall dense lymphadenopathy. Vessels: Marked atherosclerosis aorta. Pulmonary artery is mildly prominent. Chest wall and lower neck: No soft tissue masses. Upper abdomen: Suprarenal aortic calcification. Contracted gallbladder. Splenic artery calcifications . Osseous structures: Marked increase in thoracic kyphosis. Bones are osteopenic. CT/CT chest wo con [id number] IMPRESSION: 1. Overall moderate improvement in the RIGHT upper and lower lobe previously d escribed opacifications consistent with pneumonia. 2. New pleural-based wedge-shaped consolidation with central cavitation measur ing 2.3 x 1.6 cm in the LEFT lower lobe. May be related to pneumonia or pulmona ry infarct. Less likely neoplasm as this is new since 04/06/2022. Consider foll ow-up imaging in 3-4 months. 3. Significant change in appearance of the confluent mediastinal and hilar lym ph nodes as described on the prior study is difficult without IV contrast. Over all there does appear to be some improvement in the adenopathy burden.
== END 2022-06-17 11:02 | disposition home or self-care (01) ==
LOC: RAD 11:02
PROVIDERS: PCP Family Medicine; Visit Provider Internal Medicine Pulmonary Disease
DX: I35.0 Nonrheumatic aortic (valve) stenosis (principal); I10 Essential (primary) hypertension; E78.5 Hyperlipidemia, unspecified; K21.9 Gastro-esophageal reflux disease without esophagitis; I35.1 Nonrheumatic aortic (valve) insufficiency; R00.0 Tachycardia, unspecified; J18.9 Pneumonia, unspecified organism
CPT/HCPCS: 71250; 99204

== ENCOUNTER 2022-07-29 10:42 | Outpatient (CLI) | payer MEDICARE, OTHER, SELFPAY ==
--- NOTE | 2022-07-29 10:50 | MM_ITS ---
WS: [id number] VIEWS: MLO, CC, and ML views both breasts. 3D digital tomosynthesis is also included in this exam. Comparison made with prior exam of 06/16/2017, 06/20/2018, 07/04/2019. 07/21/2021.. Findings: There was no sign of mass, architectural distortion or suspicious calcification in either breast. Sta ble postoperative changes in the right breast. Stable appearing fibroglandular densities in the right breast.Heterogeneously dense MM/[place] [id number] Impression: BI-RADS: 2-Benign FOLLOW-UP: 1 Year Follow-up This mammogram was also analyzed by the Computer Aided Detection System [employer].
== END 2022-07-29 10:43 | disposition home or self-care (01) ==
PROVIDERS: PCP Family Medicine; Visit Provider Internal Medicine Medical Oncology
DX: C50.111 Malignant neoplasm of central portion of right female breast (principal)
CPT/HCPCS: 77062; G0279

== ENCOUNTER 2022-09-18 14:46 | Outpatient (CLI) | payer MEDICARE, OTHER, SELFPAY ==
--- NOTE | 2022-09-18 14:56 | CTR_ITS ---
PROCEDURE INFORMATION: Exam: CT Chest With Contrast; Diagnostic Exam date and time: 09/18/2022 3:34 PM Age: 86 years old Clinical indication: Abnormal findings; Abnormal radiologic exam of lung or chest; Prior surgery; Surgery type: Lumpectomy; Patient HX: HX of breast cancer; Additional info: 3 month f/u, 06/17/22 CT chest: TECHNIQUE: Imaging protocol: Diagnostic computed tomography of the chest with contrast. Radiation optimization: All CT scans at this facility use at least one of these dose optimization techniques: automated exposure control; mA and/or kV adjustment per patient size (includes targeted exams where dose is matched to clinical indication); or iterative reconstruction. Contrast material: OMNI 350; Contrast volume: 100 ml; Contrast route: INTRAVENOUS (IV); REPORTING DATA: Count of CT and Cardiac NM exams in prior 12 months: This patient has received 2 known CTs and 0 known cardiac nuclear medicine studies in the 12 months prior to the current study. COMPARISON: CT chest wo con [id number] 06/17/2022 3:57 PM RADIATION DOSE METRICS: Total DLP (mGy-cm): 217.15 FINDINGS: Lungs: Bronchiectasis, scarring/fibrosis and improving mild ground-glass opacity is noted in the lungs. Previously, there was a triangular masslike opacity in the apical segment of the left lower lobe that has resolved. There are new/increasing subpleural ground-glass and airspace opacities in the left lung image 19 through 24. Continued but improved reticular and ground-glass opacities are noted in the right lower lobe. The masslike opacity in the left lung on the prior exam has a most completely resolved except for a 6 mm residual nodule image 20 where previously there was a mass measuring 2.3 x 1.6 cm. There is a 5 x 7 mm subpleural nodule right lung image 43 the previously measured 6 x 9 mm. Bronchiectasis and peribronchial thickening with patchy mucous plugging is again identified. Moderate emphysematous changes are noted. Pleural spaces: The previously visualized masslike opacity in the right upper lobe continues to improve and now there is only a small area of pleural thickening and nodularity along the fissure measuring 5 mm in thickness laterally today compared to 7 mm previously. There is a new nodule versus atelectasis left costophrenic angle today measuring 1.9 x 1.6 cm. Heart: The heart is enlarged. Lymph nodes: Mediastinal adenopathy has improved. There is a subcarinal lymph node that measures 1.4 cm in short axis today that previously measured 1.7 cm. There is continued but decreasing hilar lymph nodes versus hilar mass with the largest soft tissue density in the right hilum series 5, image 32 measuring 2.0 x 1.7 cm today the previously measured 4.3 x 3.6 cm April 06, 2022. Some of the residual lymph nodes appear to have scattered central hyperdensity/early calcification suggesting post therapeutic or granulomatous lymph nodes. Vasculature: Unremarkable. No aortic aneurysm. Bones/joints: There is kyphosis with multiple unchanged chronic mild compression fracture deformities in the spine. No acute bony abnormality. Soft tissues: Unremarkable. CT/CT chest w con* [id number] IMPRESSION: 1. Waxing and waning ground-glass and interstitial opacities in the lungs with overall improvement compared to the prior examinations but there is some new ground-glass opacity in the left lower lobe. 2. There is a new nodule versus atelectasis left costophrenic angle today measuring 1.9 x 1.6 cm. Fleischner Society follow up recommendations for incidental nodules are not indicated. Follow up per the patient's medical condition. 3. The majority of the masslike densities described previously have improved or almost completely resolved. This includes the new mass left lower lobe and masslike density right upper lobe.
[2022-09-18] MEDS: iohexol 350 mg/mL 500 mL Btl (per mL) IV (15:00)
[2022-09-18 15:33] LABS: Blood Urea Nitrogen 11 mg/dL (8-23)
== END 2022-09-18 14:47 | disposition home or self-care (01) ==
PROVIDERS: PCP Family Medicine; Visit Provider Internal Medicine Pulmonary Disease
DX: R91.8 Other nonspecific abnormal finding of lung field (principal)
CPT/HCPCS: 71260; 82565; 84520; Q9967

== ENCOUNTER → 2022-09-24 09:30 | Outpatient (BNVA) | payer MEDICARE, OTHER, SELFPAY | PROVIDERS: PCP Family Medicine; Visit Provider Internal Medicine Pulmonary Disease | DX: R06.09 Other forms of dyspnea (principal); R59.0 Localized enlarged lymph nodes; J98.11 Atelectasis; K21.9 Gastro-esophageal reflux disease without esophagitis; I35.1 Nonrheumatic aortic (valve) insufficiency; I35.0 Nonrheumatic aortic (valve) stenosis; R91.1 Solitary pulmonary nodule | CPT/HCPCS: 99214 ==

== ENCOUNTER → 2022-09-24 10:34 | Outpatient (BNVA) | payer MEDICARE, OTHER, SELFPAY | PROVIDERS: PCP Family Medicine; Visit Provider Internal Medicine Pulmonary Disease | DX: J18.9 Pneumonia, unspecified organism (principal); R06.02 Shortness of breath; R06.09 Other forms of dyspnea; J98.11 Atelectasis | CPT/HCPCS: 71046 ==

== ENCOUNTER 2022-10-06 09:49 | Outpatient (CLI) | payer MEDICARE, OTHER, SELFPAY ==
--- NOTE | 2022-10-06 10:00 | USCV_ITS ---
Soledad Varma Age: 86 Gender: F : 1935 Exam Date: 10/06/2022 10:43 Ordering Phys: Timothy Chung MD Technologist: CT Exam Location: [facility] [place] Indication: murmur BP: 130 / 78 HR: 115 Rhythm: Sinus Technical Quality: MEASUREMENTS (Male / Female) Normal Values 2D ECHO LV Diastolic Diameter PLAX 4.0 cm 4.2 - 5.9 / 3.9 - 5.3 cm LV Systolic Diameter PLAX 2.3 cm IVS Diastolic Thickness 1.4 cm 0.6 - 1.0 / 0.6 - 0.9 cm IVS Systolic Thickness 1.7 cm LVPW Diastolic Thickness 2.0 cm 0.6 - 1.0 / 0.6 - 0.9 cm LVPW Systolic Thickness 1.8 cm LVOT Diameter 2.0 cm LV Ejection Fraction 2D Teich 74.3 % LV Ejection Fraction MOD 2C 60.3 % LV Ejection Fraction 2C AL 59.8 % LA Diameter 3.8 cm M-MODE Aortic Annulus Diameter 3.2 cm LA Ao Ratio MM 1.2 MV E Point Septal Separation 0.5 cm DOPPLER AV Peak Velocity 302.0 cm/s LVOT Peak Velocity 98.7 cm/s AV Area Cont Eq vti 1.2 cm squared AV Area Cont Eq pk 1.1 cm squared MV Area PHT 5.0 cm squared Mitral E to A Ratio 1.1 MV E' Velocity 206.0 cm/s TR Peak Velocity 355.7 cm/s TR Peak Gradient 57.2 mmHg TV Peak E Velocity 135.0 cm/s Right Atrial Pressure 3.0 mmHg Pulmonary Artery Systolic Pressu 53.6 mmHg RV Acceleration Time 0.1 s FINDINGS Left Ventricle Moderate left ventricular hypertrophy. Normal left ventricular size and systolic function, EF 64 %. No regional wall motion abnormalities. The patient was found to be tachycardic during the study with a heart rate in the 120 to 130s range Right Ventricle The right ventricle is normal in size and function. Right Atrium The right atrium is normal in size. Left Atrium Mildly increased left atrial size. Mitral Valve Moderate to heavy mitral annular calcification. Moderate mitral valve regurgitation. Aortic Valve Moderate aortic valve calcification. Moderate aortic valve regurgitation. moderate aortic valve stenosis, mean gradient 14.5 mmHg, ZENA 1.2 cm squared. Tricuspid Valve Fmglihqr-[id number]-blusvi tricuspid valve regurgitation.thickened tricuspid valve. Pulmonic Valve No gross abnormalities were noted Pericardium No pericardial effusion. Aorta Normal aortic annulus size. IVC The inferior vena cava appears normal. CONCLUSIONS Moderate left ventricular hypertrophy. Normal left ventricular size and systolic function, EF 64 %. No regional wall motion abnormalities. The patient was found to be tachycardic during the study with a heart rate in the 120 to 130s range. Mildly increased left atrial size. The right atrium is normal in size. Moderate to heavy mitral annular calcification. Moderate mitral valve regurgitation. Moderate aortic valve calcification. Moderate aortic valve regurgitation. moderate aortic valve stenosis, mean gradient 14.5 mmHg, ZENA 1.2 cm squared. Tegqhbrc-an-hzvhnm tricuspid valve regurgitation.thickened tricuspid valve. Estimated pulmonary artery peak systolic pressure 54 mmHg There is no pericardial effusion. There are no intracardiac masses. Compared to the study from Compared to the study from 04/07/2022, there may not be a significant change Dr Jose Jerry MD [facility] (Electronically Signed) Final Date: 07 Oct 2022 12:48 S
== END 2022-10-06 09:50 | disposition home or self-care (01) ==
PROVIDERS: PCP Family Medicine; Visit Provider Internal Medicine Pulmonary Disease
DX: R06.09 Other forms of dyspnea (principal); I34.81 Nonrheumatic mitral (valve) annulus calcification; I34.0 Nonrheumatic mitral (valve) insufficiency; I07.1 Rheumatic tricuspid insufficiency
CPT/HCPCS: 93306

== ENCOUNTER 2022-10-08 07:27 | Outpatient (CLI) | payer MEDICARE, OTHER, SELFPAY ==
[2022-10-08 08:11] VITALS: PULSE 96; RESP 20; O2SAT 97
[2022-10-08] MEDS: albuterol 2.5 mg/3 mL Neb INHALATION (08:11)
[2022-10-08 08:16] VITALS: PULSE 83
--- NOTE | 2022-10-08 09:09 | FL_ITS ---
WS: [id number] FL barium swallow [id number] REASON FOR EXAM: DYSPHAGIA/R LOWER LOBE PNEUMONIA FLUOROSCOPY TIME: 2min [id number] # OF SPOT FILMS: Multiple FINDINGS: Patient was examined in the upright and prone COKER positions. Normal motility in the cervical esophagus. No aspiration identified. No extrinsic or intrinsic mass e ffect. 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 8 mm anterior to posterior and 12 mm transve rse dimensions. Moderate impingement on the thoracic esophagus by ectatic thoracic aorta. In the prone position, there was frequent loss of primary peristalsis in the thoracic esophagus with degeneration into tertiary contractions. There was prolonged retention of contrast with episodes of c ontraction of the midthoracic esophagus and retrograde reflux of the barium above the thoracic inlet. No aspiration identified. No stricture or hiatal hernia in the distal esophagus. FL/FL barium swallow [id number] IMPRESSION: Zenker's diverticulum. Esophageal dysmotility as above. The degree of retrograde reflux in the esophag us may put the patient at risk for aspiration in the the supine and prone posit ions.
== END 2022-10-08 07:28 | disposition home or self-care (01) ==
LOC: RT 07:28
PROVIDERS: PCP Family Medicine; Visit Provider Internal Medicine Pulmonary Disease
DX: J18.9 Pneumonia, unspecified organism (principal); R13.10 Dysphagia, unspecified; K22.5 Diverticulum of esophagus, acquired; K22.89 Other specified disease of esophagus
CPT/HCPCS: 74220; 94060; 94618; 94729; J7613

== ENCOUNTER 2022-11-26 11:13 | Outpatient (RCR) | payer MEDICARE, OTHER, SELFPAY | END 2022-12-04 23:59 | disposition home or self-care (01) | LOC: SST 11:13 | PROVIDERS: PCP Family Medicine; Visit Provider Family Medicine | DX: Z91.89 Other specified personal risk factors, not elsewhere classified (principal) | CPT/HCPCS: 92610 ==

== ENCOUNTER 2022-12-29 11:42 | Outpatient (CLI) | payer MEDICARE, OTHER, SELFPAY ==
--- NOTE | 2022-12-29 12:00 | CTR_ITS ---
PROCEDURE INFORMATION: Exam: CT Chest Without Contrast; Diagnostic Exam date and time: 12/29/2022 11:52 AM Age: 87 years old Clinical indication: Shortness of breath; Prior surgery; Surgery date: 6+ months; Surgery type: RT breast lumpectomy; Patient HX: HX of breast cancer; Additional info: SOB TECHNIQUE: Imaging protocol: Diagnostic computed tomography of the chest without contrast. Radiation optimization: All CT scans at this facility use at least one of these dose optimization techniques: automated exposure control; mA and/or kV adjustment per patient size (includes targeted exams where dose is matched to clinical indication); or iterative reconstruction. REPORTING DATA: Count of CT and Cardiac NM exams in prior 12 months: This patient has received 3 known CTs and 0 known cardiac nuclear medicine studies in the 12 months prior to the current study. COMPARISON: CT chest w con* [id number] 09/18/2022 3:34 PM RADIATION DOSE METRICS: Total DLP (mGy-cm): 138.65 FINDINGS: Lungs: Scattered bronchiectasis both lung crystal relatively stable. The scattered peribronchial nodular opacities improved in some areas and progressed and others likely in part secondary to ongoing bronchiolitis and bronchiolectasis. Superimposed small irregular shaped consolidative densities likely secondary to subsegmental atelectasis and scarring both lung crystal relatively stable. Chronic partial atelectasis right middle lobe, stable. Pleural spaces: Unremarkable. No pneumothorax. No pleural effusion. Heart: Heart is moderately enlarged. Extensive calcification of the mitral annulus and coronary arteries. No significant pericardial effusion. Lymph nodes: Few small mediastinal lymph nodes relatively stable favoring benign etiology. Vasculature: Diffuse atherosclerotic changes of the thoracic aorta. No aortic aneurysm. Bones/joints: Accentuated kyphotic curvature midthoracic spine with mild-moderate anterior degenerative endplate changes, stable. No acute bony abnormalities. Soft tissues: Unremarkable. CT/CT chest wo con [id number] IMPRESSION: 1. Diffuse chronic airway changes with adjacent scattered subsegmental atelectatic changes and scarring overall not significantly changed in extent from prior study. 2. Chronic partial atelectasis right middle lobe, stable. 3. Moderate cardiomegaly, unchanged.
== END 2022-12-29 11:43 | disposition home or self-care (01) ==
LOC: RAD 11:43
PROVIDERS: PCP Family Medicine; Visit Provider Internal Medicine Pulmonary Disease
DX: J98.11 Atelectasis (principal); R06.02 Shortness of breath; Z85.3 Personal history of malignant neoplasm of breast; I51.7 Cardiomegaly
CPT/HCPCS: 71250; 99214

== ENCOUNTER → 2022-12-31 08:46 | Outpatient (BNVA) | payer MEDICARE, OTHER, SELFPAY | PROVIDERS: PCP Family Medicine; Visit Provider Internal Medicine Pulmonary Disease | DX: J98.4 Other disorders of lung; R59.0 Localized enlarged lymph nodes; J98.11 Atelectasis; K21.9 Gastro-esophageal reflux disease without esophagitis; I35.1 Nonrheumatic aortic (valve) insufficiency; I35.0 Nonrheumatic aortic (valve) stenosis; R91.1 Solitary pulmonary nodule | CPT/HCPCS: 99214 ==

== ENCOUNTER → 2023-07-01 07:35 | Outpatient (BNVA) | payer MEDICARE, OTHER, SELFPAY | PROVIDERS: PCP Family Medicine; Visit Provider Internal Medicine Pulmonary Disease | DX: J98.4 Other disorders of lung (principal); R59.0 Localized enlarged lymph nodes; J98.11 Atelectasis; K21.9 Gastro-esophageal reflux disease without esophagitis; I35.1 Nonrheumatic aortic (valve) insufficiency; I35.0 Nonrheumatic aortic (valve) stenosis; R91.1 Solitary pulmonary nodule | CPT/HCPCS: 99214 ==

== ENCOUNTER 2023-08-25 08:58 | Outpatient (CLI) | payer MEDICARE, OTHER, SELFPAY ==
--- NOTE | 2023-08-25 09:06 | MM_ITS ---
WS: [id number] BILATERAL 3D TOMOSYNTHESIS DIGITAL SCREENING MAMMOGRAPHY WITH CAD CLINICAL INFORMATION: ANNUAL - HX BR CA HISTORY: Diagnostic mammogram. No current complaints. COMPARISON: 2022 TECHNIQUE: Bilateral CC and MLO views. FINDINGS: The breasts are composed of heterogeneous fibroglandular density tissue, which can limit the detectio n of small underlying mass lesions. No suspicious mass, asymmetry, calcifications, or architectural d istortion. No evidence of malignancy. Vascular calcifications. Incidental punctate and lucent centere d calcifications. Prior postoperative changes RIGHT lumpectomy with parenchymal fibrosis. IMPRESSION: MM/[place] [id number] BI-RADS: 2-Benign FOLLOW UP: 1 Year Follow-up Recommend return to annual diagnostic mammography.
== END 2023-08-25 08:59 | disposition home or self-care (01) ==
LOC: RAD 08:59
PROVIDERS: PCP Family Medicine; Visit Provider Family Medicine
DX: Z85.3 Personal history of malignant neoplasm of breast (principal); R92.323 Mammographic fibroglandular density, bilateral breasts; R92.333 Mammographic heterogeneous density, bilateral breasts; N60.31 Fibrosclerosis of right breast
CPT/HCPCS: 77062; G0279

== ENCOUNTER → 2023-12-29 09:58 | Outpatient (BNVA) | payer MEDICARE, OTHER, SELFPAY | PROVIDERS: PCP Family Medicine; Visit Provider Internal Medicine Critical Care Medicine | DX: J96.11 Chronic respiratory failure with hypoxia (principal); Z99.81 Dependence on supplemental oxygen; J98.4 Other disorders of lung; J47.9 Bronchiectasis, uncomplicated; R13.19 Other dysphagia; K22.5 Diverticulum of esophagus, acquired; I35.1 Nonrheumatic aortic (valve) insufficiency; I35.0 Nonrheumatic aortic (valve) stenosis; J98.11 Atelectasis; M40.209 Unspecified kyphosis, site unspecified; Z87.01 Personal history of pneumonia (recurrent); Z71.9 Counseling, unspecified | CPT/HCPCS: 99214 ==

== ENCOUNTER 2024-04-07 10:47 | Outpatient (RCR) | payer MEDICARE, OTHER, SELFPAY | END 2024-05-06 23:59 | disposition home or self-care (01) | LOC: CR 10:47 | PROVIDERS: PCP Family Medicine; Referring Provider Internal Medicine; Visit Provider Internal Medicine | DX: Z95.2 Presence of prosthetic heart valve (principal) | CPT/HCPCS: 93798 ==

== ENCOUNTER 2024-05-08 09:41 | Outpatient (RCR) | payer MEDICARE, OTHER, SELFPAY | END 2024-06-06 23:59 | disposition home or self-care (01) | LOC: CR 09:41 | PROVIDERS: PCP Family Medicine; Referring Provider Internal Medicine; Visit Provider Internal Medicine | DX: Z91.89 Other specified personal risk factors, not elsewhere classified (principal) | CPT/HCPCS: 93798 ==

== ENCOUNTER 2024-06-07 08:50 | Outpatient (RCR) | payer MEDICARE, OTHER, SELFPAY | END 2024-07-07 23:59 | disposition home or self-care (01) | LOC: CR 08:50 | PROVIDERS: PCP Family Medicine; Referring Provider Internal Medicine; Visit Provider Internal Medicine | DX: Z95.2 Presence of prosthetic heart valve (principal) | CPT/HCPCS: 93798 ==

== ENCOUNTER 2024-07-10 13:21 | Outpatient (RCR) | payer MEDICARE, OTHER, SELFPAY | END 2024-08-04 23:59 | disposition home or self-care (01) | LOC: CR 13:21 | PROVIDERS: PCP Family Medicine; Referring Provider Internal Medicine; Visit Provider Internal Medicine | DX: Z95.2 Presence of prosthetic heart valve (principal) | CPT/HCPCS: 93798 ==

== ENCOUNTER 2024-08-05 14:06 | Outpatient (RCR) | payer MEDICARE, OTHER, SELFPAY | END 2024-09-04 23:59 | disposition home or self-care (01) | LOC: CR 14:06 | PROVIDERS: PCP Family Medicine; Referring Provider Internal Medicine; Visit Provider Internal Medicine | DX: Z95.2 Presence of prosthetic heart valve (principal) | CPT/HCPCS: 93798 ==

== ENCOUNTER 2024-09-05 12:32 | Outpatient (RCR) | payer MEDICARE, OTHER, SELFPAY | END 2024-10-04 23:59 | disposition home or self-care (01) | LOC: CR 12:32 | PROVIDERS: PCP Family Medicine; Referring Provider Internal Medicine; Visit Provider Internal Medicine | DX: Z95.2 Presence of prosthetic heart valve (principal) | CPT/HCPCS: 93798 ==

== ENCOUNTER 2024-10-25 10:28 | Outpatient (CLI) | payer MEDICARE, OTHER, SELFPAY ==
--- NOTE | 2024-10-25 10:34 | MM_ITS ---
WS: [id number] DIAGNOSTIC BILATERAL DIGITAL BREAST TOMOSYNTHESIS MAMMOGRAPHY WITH CAD HISTORY: HX OF BREAST CANCER COMPARISON: 08/25/2023, 07/29/2022 TECHNIQUE: Bilateral craniocaudad, mediolateral oblique, and mediolateral views are submitted with tomosynthesis and SM. Computer aided detection utilized. Breast composition: The breasts are heterogeneously dense, which may obscure small masses. Stable asymmetries and vascular calcifications in each breast. No suspicious mass or grouping of calcification. MM/MM diag BI tomosynthesis [id number] IMPRESSION: BI-RADS: 2 - Benign FOLLOW UP: 1 Year Follow-up
== END 2024-10-25 10:29 | disposition home or self-care (01) ==
LOC: RAD 10:29
PROVIDERS: PCP Family Medicine; Visit Provider Family Medicine
DX: Z85.3 Personal history of malignant neoplasm of breast (principal); R92.333 Mammographic heterogeneous density, bilateral breasts; N64.89 Other specified disorders of breast; R92.1 Mammographic calcification found on diagnostic imaging of breast
CPT/HCPCS: 77062; G0279